=== PATIENT | male | born 1945 | race Caucasian/White ===

== ENCOUNTER 2016-11-22 21:04 | Emergency (ER) | payer MEDICARE, BC ==
[2016-11-22 21:05] VITALS: BMI 22.7
--- NOTE | 2016-11-22 21:22 | C.PDOC ---
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 Patient has a Hx of a prior CVA with residual baseline contractions; he states his was assisting him to the bathroom, he grabbed on to a towel alda and fell. Patient is now complaining of left hip pain, headache, and mild left elbow pain. Patient is due for hemodialysis tomorrow; denies fever, LOC, or other complaints. - HPI Time Seen by Provider: 11/22/16 21:07 Chief Complaint (Nursing): Trauma History Per: Patient History/Exam Limitations: no limitations Onset/Duration Of Symptoms: Mins Injury Occurred (Timing): Just Before Arrival Location Of Injury: Left: Elbow, Hip Recent travel outside of the [place]: No - Fall Fall:Prior To Injury: Slipped Past Medical History Reviewed: Historical Data, Nursing Documentation, Vital Signs Vital Signs: Last Vital Signs Temp 98 F 11/23/16 00:35 Pulse 100 H 11/23/16 00:35 Resp 20 11/23/16 00:35 BP 173/93 H 11/23/16 00:35 Pulse Ox 98 11/23/16 00:35 - Medical History PMH: Back Problems, CAD, CHF, CVA, Diabetes, HTN, End Stage Renal Disease, Chronic Kidney Disease (hemodialysis m-w-f- left av shunt) - [facility] Procedures CORONAR ARTERIOGR-2 CATH (07/04/04) DRAINAGE OF LEFT PLEURAL CAVITY, PERCUTANEOUS APPROACH (12/19/15) HEMODIALYSIS (09/25/13) INTRODUCTION OF SERUM/TOX/VACCINE INTO MUSCLE, PERC APPROACH (12/19/15) LEFT HEART CARDIAC CATH (07/04/04) LT HEART ANGIOCARDIOGRAM (07/04/04) PERFORMANCE OF URINARY FILTRATION, MULTIPLE (12/19/15) Family History: States: Unknown Family Hx - Social History Hx Tobacco Use: No Hx Alcohol Use: No Hx Substance Use: No - Immunization History Hx Tetanus Toxoid Vaccination: No Hx Influenza Vaccination: Yes Hx Pneumococcal Vaccination: No Review Of Systems Constitutional: Negative for: Fever, Chills Gastrointestinal: Negative for: Abdominal Pain Musculoskeletal: Positive for: Arm Pain, Other (Hip pain) Neurological: Positive for: Headache. Negative for: Dizziness, Other (LOC) Physical Exam - Physical Exam Appears: Non-toxic Skin: Normal Color, Warm, Dry Head: Atraumatic, Normacephalic Eye(s): bilateral: Normal Inspection, PERRL, EOMI Oral Mucosa: Moist Neck: Normal, Normal ROM, No Midline Cervical Tenderness, No Paracervical Tenderness, Supple Chest: Symmetrical, No Tenderness Cardiovascular: Rhythm Regular, No Murmur Respiratory: Normal Breath Sounds, No Rales, No Rhonchi, No Wheezing Gastrointestinal/Abdominal: Soft, No Tenderness Back: Normal Inspection, No Vertebral Tenderness, No Paraspinal Tenderness Extremity: Tenderness (Left hip and left elbow), No Deformity Pulses: Left Radial: Normal, Right Radial: Normal Neurological/Psych: Oriented x3, Normal Speech, Normal Cognition, Other ( Baseline contractions) ED Course And Treatment O2 Sat by Pulse Oximetry: 100 (Room air) Pulse Ox Interpretation: Normal Medical Decision Making Medical Decision Making: Plan: * Head CT * Left lower extremity CT * CXR * Left elbow x-ray * Left hip x-ray * Tylenol ct chest shows moderate pleural effusion. pt with known h/o of pleural effusion , multiple drainage before. discussed results in detail with patient. refuses admission for IR drainage. states he has fluid drained multiple times in past. advised pt to set up outpt appointment for drainage. s incidental finding unrelated to acute trauma. discussed results of all ct findings in detail with patient. pt still asking for d/c. daughter bedside understands return precautions. also discussed results of colitis with pt. pt denies any fecal impaction. states 'he goes to the bathroom fine". advised further obs in hospital. pt refuses. signs ama Disposition - Disposition Disposition: AGAINST MEDICAL ADVICE Disposition Time: 12:00 Condition: UNKNOWN Additional Instructions: please follow up with your doctor. return toe r with worsening s ymptoms or concerns. please discuss your ct results with your doctor. Instructions: Fall Prevention for Older Adults (ED), Head Injury (ED), Pleural Effusion (ED), Hip Sprain (ED) Forms: [employer] (formerly [employer]) ([place]) - Clinical Impression Clinical Impression: Fall - Scribe Statement The provider has reviewed the documentation as recorded by the Scribe Lasha Viera All medical record entries made by the Scribe were at my direction and personally dictated by me. I have reviewed the chart and agree that the record accurately reflects my personal performance of the history, physical exam, medical decision making, and the department course for this patient. I have also personally directed, reviewed, and agree with the discharge instructions and disposition.
[2016-11-22 22:54] VITALS: RESP 20
[2016-11-23 00:38] VITALS: BP 173/93; PULSE 100; TEMP 98
--- NOTE | 2016-11-23 08:53 | CT ---
PROCEDURE: CT HEAD WITHOUT CONTRAST. HISTORY: fall COMPARISON: None available. TECHNIQUE: Axial computed tomography images were obtained through the head/brain without intravenous contrast. Radiation dose: Total exam DLP = 1142 mGy-cm. This CT exam was performed using one or more of the following dose reduction techniques: Automated exposure control, adjustment of the mA and/or kV according to patient size, and/or use of iterative reconstruction technique. FINDINGS: HEMORRHAGE: No intracranial hemorrhage. BRAIN: No mass effect or edema. Scattered focal lucencies in the subcortical and periventricular white matter suggestive for chronic microvascular ischemic change. Atrophy. Right MCA territory encephalomalacia most pronounced involving the right basal ganglia with associated ex vacuo dilatation of the right lateral ventricle. VENTRICLES: Unremarkable. No hydrocephalus. CALVARIUM: Unremarkable. PARANASAL SINUSES: Chronic mucosal thickening in the paranasal sinuses. MASTOID AIR CELLS: Unremarkable as visualized. No inflammatory changes. OTHER FINDINGS: None. IMPRESSION: No acute intracranial abnormality. Atrophy. Chronic microvascular ischemic change. Right MCA territory encephalomalacia most pronounced involving the right basal ganglia with associated ex vacuo dilatation of the right lateral ventricle. If there is concern for acute ischemic change, consider further evaluation with MRI. These findings were preliminarily reported at 11:12 p.m. on 11/22/[address] Klaudia Levi from [facility].
--- NOTE | 2016-11-23 09:01 | CT ---
CT left hip History: Fall. Comparison: None available. Technique: Multi-echo multiplanar sequences were performed through left hip without the use of intravenous contrast. Subsequently, sagittal and coronal reformatted images were obtained. Findings: Study limited secondary to suboptimal patient positioning. Degenerative changes of the bilateral hip joints with joint space narrowing and subchondral sclerosis. Diffuse osteopenia. No evidence of acute displaced fracture. Extensive vascular calcifications. Mild to moderate dilatation of a stool-filled rectum with mural thickening and probable pericolonic fat infiltration. Thickening of the urinary bladder wall which is somewhat under distended limiting evaluation. Enlarged prostate gland. Incidentally noted is prominent osteopenia at the level of the right ankle joint space. Correlation with dedicated plain x-ray at this level may be helpful if clinically indicated to better evaluate. Impression: Limited study secondary to suboptimal patient positioning. No evidence of acute displaced fracture. If there is persistent concern for fracture, consider MRI. Findings concerning for possible stercoral colitis as described above. Clinical correlation. Thickening of the urinary bladder wall greater than expected for the degree of underdistention. Clinical correlation. Differential may include detrusor hypertrophy versus cystitis. Correlation with urinalysis recommended. Additional findings as above. These findings were preliminarily reported at 11:48 p.m. on 11/22/[address] Klaudia Levi from [facility].
--- NOTE | 2016-11-23 09:13 | CT ---
CT chest History: Trauma. Comparison: None available. Technique: Multiple contiguous axial images were performed through the chest without intravenous contrast. Subsequently, sagittal and coronal reformatted images were obtained. Findings: Left greater than right bibasilar consolidation suggestive for atelectasis and or infiltrate. Linear opacity in the lingula and inferior left upper lobe also suggestive for atelectasis and or infiltrate. Patchy regions of ground-glass opacity noted in the lung sinclair bilaterally which are nonspecific and may represent alveolar pulmonary edema versus ground-glass infiltrates versus atelectasis versus additional etiology. Small region of coarse interstitial lung markings in the periphery of the right upper lobe suggestive for focal fibrosis and or scarring best seen on series 3, images 37-38. 8 millimeter pulmonary nodule at the right lung base on series 3, image 87. 3 millimeter nodule seen within the posterior aspect of the right upper lobe on series 3, image 59. Moderate left and small right pleural effusions. Left-sided pleural effusion appears loculated. Small amount of fluid also noted within the right major fissure posteriorly. Cardiomegaly. Degenerative changes in the spine. Extensive atherosclerotic disease. Small hypodensity seen within the medial right hepatic lobe inferiorly, too small to adequately characterize. Extensive vascular calcifications. Suggestion of renal atrophy. Correlation with renal ultrasound is recommended. Impression: No traumatic cardiopulmonary findings. Moderate loculated appearing left pleural effusion, small right pleural effusion, and fluid within the right major fissure. Left greater than right bibasilar consolidation nonspecific but suggestive for atelectasis. Linear atelectasis also suggestive for atelectasis in the lingula and inferior left upper lobe. Patchy regions of ground-glass opacity also present in the lung sinclair bilaterally felt most likely to reflect either additional regions of atelectasis versus alveolar pulmonary edema. Superimposed infection is not entirely excluded. Underlying lesion cannot entirely be excluded. Posttreatment follow-up is recommended. Clinical correlation. Cardiomegaly. Prominent calcification noted within the visualized aorta. Mild aneurysmal prominence of the ascending aorta measuring up to 3.7 centimeters. Prominent coronary calcifications and or stenting. 8 millimeter pulmonary nodule at the right lung base on series 3, image 87. 3 millimeter nodule seen within the posterior aspect of the right upper lobe on series 3, image 59. Additional findings as above. These findings were preliminarily reported at 11:34 p.m. on 11/22/[address] Klaudia Levi from [facility].
--- NOTE | 2016-11-23 10:25 | RAD ---
Pelvis and left hip two views History: Fall. Comparison: None available. Findings: Prominent diffuse osteopenia. Suboptimal technique markedly limits evaluation. Moderate degenerative changes of the bilateral hip joints with joint space narrowing and subchondral sclerosis. No evidence of acute displaced fracture or dislocation. Impression: Negative acute. If pain persists, consider MRI.
--- NOTE | 2016-11-23 10:35 | RAD ---
Chest x-ray single frontal view History: Fall. Comparison: None available. Findings: Loculated left pleural effusion with prominent consolidative changes throughout the left lung with associated prominent volume loss. Patchy consolidative changes throughout the right lung. Cardiomegaly. Calcification at the aortic knob. Degenerative changes in the spine and shoulders. Impression: Loculated left pleural effusion with prominent consolidative changes throughout the left lung with associated prominent volume loss. Patchy consolidative changes throughout the right lung. Cardiomegaly. Calcification at the aortic knob.
--- NOTE | 2016-11-23 11:08 | RAD ---
PROCEDURE: Radiographs of the left elbow. HISTORY: fall COMPARISON: No prior. FINDINGS: BONES: These osteopenia suggests osteoporosis. No suspicious lytic or blastic changes identified. Mild degenerate changes seen at the left elbow joint. JOINTS: As above. SOFT TISSUES: There is a soft tissue lesion measure approximate 5.7 cm greatest dimension with peripheral calcifications displacing the dermis and skin laterally and anteriorly. No periosteal reaction or local lytic or blastic changes seen or lateral to relative to the distal left humerus. It is seen at the ventral side of the upper arm soft tissues with a 2nd lesion identified measuring at least 5 cm greatest dimension more proximally but an nearly the same ventral location. Consider subcutaneous disorder such is xanthoma and other etiologies. Further clinical correlation is advised if not already evaluated. Extensive vascular calcifications seen the soft tissues as well. JOINT EFFUSION: None. OTHER FINDINGS: None IMPRESSION: 1. No acute fracture dislocation. Limited degenerate changes seen of left elbow joint. 2. Diffuse osteopenia suggests osteoporosis 3. Partially calcified soft tissue masses at the left upper extremity ventral soft tissues as discussed above. Consider possible xanthomata, though other etiologies are possible. Further clinical correlation is advised. MRI may be of further characterization (without and with contrast).
[2016-11-23 17:46] VITALS: O2SAT 100
== END 2016-11-23 00:38 | disposition left against medical advice (07) ==
LOC: C.ER 21:04
DX: Z04.3 Encounter for examination and observation following other accident (principal); W19.XXXA Unspecified fall, initial encounter; I12.0 Hypertensive chronic kidney disease with stage 5 chronic kidney disease or end stage renal disease; N18.6 End stage renal disease; Z99.2 Dependence on renal dialysis; E11.9 Type 2 diabetes mellitus without complications; I25.10 Atherosclerotic heart disease of native coronary artery without angina pectoris

== ENCOUNTER 2017-03-18 11:57 | Inpatient (IN) | payer MEDICARE, BC ==
[2017-03-18 11:59] VITALS: BMI 22.7
[2017-03-18] MEDS ORDERED: Vancomycin 1 gm/NS 200 ml 1 GM/200 ML BAG IVPB STA (13:10)
[2017-03-18] MEDS ORDERED: Sodium Chloride 0.9% 500 ML IV ONE (13:10)
[2017-03-18] MEDS ORDERED: Piperacill/Tazo 3.375gm in Dex 3.375 GM/50 ML BAG IVPB STA (13:10)
--- NOTE | 2017-03-18 13:14 | C.PDOC ---
History Of Present Illness 72 yo male, esrd on hd mwf, chf, htn, cva, baseline contracted left sided deficit, bedbound presents from home for hypoglycemia, cough congestion since wednesday. last hd yesterday. subjective fever. (+)cough with white sputum. blood sugar 30 prehospital. 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 Seen by Provider: 03/18/17 12:25 Chief Complaint (Nursing): Cough, Cold, Congestion Past Medical History Reviewed: Historical Data, Nursing Documentation, Vital Signs Vital Signs: Last Vital Signs Temp 97.9 F 03/21/17 08:00 Pulse 57 L 03/21/17 11:11 Resp 20 03/21/17 08:00 BP 109/66 03/21/17 11:11 Pulse Ox 97 03/21/17 08:00 - Medical History PMH: Back Problems, CAD, CHF, CVA, Diabetes, HTN, Pneumonia, End Stage Renal Disease, Chronic Kidney Disease (hemodialysis m-w-f- left av shunt) Denies: HIV - [facility] Procedures (12/24/16) CORONAR ARTERIOGR-2 CATH (07/04/04) DRAINAGE OF LEFT PLEURAL CAVITY, PERCUTANEOUS APPROACH (12/24/16) HEMODIALYSIS (09/25/13) INTRODUCTION OF SERUM/TOX/VACCINE INTO MUSCLE, PERC APPROACH (12/24/16) LEFT HEART CARDIAC CATH (07/04/04) LT HEART ANGIOCARDIOGRAM (07/04/04) PERFORMANCE OF URINARY FILTRATION, MULTIPLE (12/19/15) Family History: States: Unknown Family Hx - Social History Hx Tobacco Use: No Hx Alcohol Use: No Hx Substance Use: No - Immunization History Hx Tetanus Toxoid Vaccination: No Hx Influenza Vaccination: Yes Hx Pneumococcal Vaccination: No Review Of Systems Constitutional: Positive for: Fever, Chills Respiratory: Positive for: Cough Physical Exam - Physical Exam Appears: No Acute Distress, Other (elderly male, contracted, awake alert, ) Skin: Normal Color, Warm, Dry Eye(s): bilateral: Normal Inspection, PERRL, EOMI Nose: Normal Throat: Normal Neck: Normal Cardiovascular: Rhythm Regular Respiratory: Other ((+)dimished left base) Gastrointestinal/Abdominal: Normal Exam Back: Normal Inspection Extremity: Normal ROM ED Course And Treatment - Laboratory Results Result Diagrams: 03/21/17 08:50 03/21/17 08:50 Medical Decision Making Medical Decision Making: ro pna, chf, nstemi- labs imaging pending 300: ekg afib 108 - new onset - pt also with nstemi, will start heparin, suspect type II. pt influneza positive will start tamiflu. last hd yesterday. noted la, sirs criteria neg. not code sepsis. b/p 150 systolic, hr 110- stable for tele. dr mc accepts. pt requests full code. Disposition - Disposition Disposition: HOSPITALIZED Disposition Time: 03:00 Condition: GUARDED - Clinical Impression Clinical Impression: Pneumonia, Influenza, Atrial fibrillation, NSTEMI (non-ST elevated myocardial infarction) Decision To Admit - . Bed Request Type: Telemetry Admitting Physician: Sarah Mc Patient Diagnosis: Pneumonia, Influenza, Atrial fibrillation, NSTEMI (non-ST elevated myocardial infarction)
--- NOTE | 2017-03-18 13:36 | RAD ---
PROCEDURE: CHEST RADIOGRAPH, 1 VIEW HISTORY: chest pain COMPARISON: 11/22/2016 FINDINGS: LUNGS: The a extent of left inferior hemithoracic coalescent airspace opacities S slightly less - all patchy improved aeration here inferred. Prior left pleural effusion is renoted similar to perhaps minimally decreased. Central pulmonary venous congestion increased since prior exam. Interval visual fluid present. PLEURA: No pneumothorax. Left than right pleural effusions as above CARDIOVASCULAR: Moderate cardiomegaly -similar OSSEOUS STRUCTURES: No significant abnormalities. VISUALIZED UPPER ABDOMEN: Normal. OTHER FINDINGS: None. IMPRESSION: Cardiomegaly -similar. Interval increased pulmonary venous congestion -CHF inferred. Superimposed coalescent airspace opacities - inferior left tino thorax - minimally decreased-here minimal patchy improved aeration of prior denser coalescing infiltrates / coalescent pulmonary edema- inferred. Left pleural effusion -similar to minimally decreased . Interval right fissural pleural effusion
[2017-03-18 13:38] LABS: BASO # 0.1 K/uL (0.0-0.2); BASO % 1.3 % (0.0-2.0); EOS % 0.4 % (0.0-4.0); HEMOGLOBIN 13.9 g/dL (12.0-18.0); LYMPH # 0.9 K/uL (1.0-4.3); LYMPH % 17.6 % (20.0-40.0); MEAN CELL VOLUME 95.4 fL (80.0-94.0); MEAN CORPUSCULAR HEMOGLOBIN 31.5 pg (27.0-31.0); MEAN PLATELET VOLUME 9.8 fL (7.2-11.7); MONO # 0.5 K/uL (0.0-0.8); MONO % 10.8 % (0.0-10.0); NEUT # 3.4 K/uL (1.8-7.0); NEUT % 69.9 % (50.0-75.0); NRBC % 0.1 % (0.0-2.0); RBC 4.41 Mil/uL (4.40-5.90); RED CELL DISTRIBUTION WIDTH 17.5 % (11.5-14.5); WHITE BLOOD COUNT 4.8 K/uL (4.8-10.8)
[2017-03-18 13:46] LABS: VENOUS BLOOD GAS BASE EXCESS -4.1 mmol/L (0.0-2.0); VENOUS BLOOD GAS PCO2 44 mmHg (40-60); VENOUS BLOOD GAS PO2 30 mm/Hg (30-55); VENOUS BLOOD PH 7.31 (7.32-7.43)
[2017-03-18] MEDS ORDERED: Piperacillin/Tazobact 3.375 gm 100 ML IVPB ONE (13:47)
[2017-03-18 13:54] LABS: ALB/GLOB RATIO 0.9 (1.0-2.1); ALBUMIN 3.6 g/dL (3.5-5.0); CALCIUM 8.4 mg/dl (8.6-10.4)
[2017-03-18 14:20] LABS: INR 1.6; PROTHROMBIN TIME 18.3 SECONDS (9.7-12.2)
[2017-03-18 14:49] LABS: TROPONIN I 0.312 ng/mL (0.00-0.120)
[2017-03-18] MEDS ORDERED: Heparin25000 units/250ml 1/2NS 25,000 UNITS/250 ML BAG IV ONE (14:51)
[2017-03-18] MEDS ORDERED: Heparin25000 units/250ml 1/2NS 25,000 UNITS/250 ML BAG IV PRN (15:22)
--- NOTE | 2017-03-18 15:36 | CP.PCM.PN ---
Subjective - Date & Time of Evaluation Date of Evaluation: 03/18/17 Time of Evaluation: 10:00 - Subjective Subjective: CC: Cough and passed out HPI: Patient is a 72 year old male with a history of ESRD on dialysis three times a week, CVA with left sided paralysis, HTN, and DM. He was seen in the ED with his at bedside. Most of the history is from . Patient has been coughing for the past few days and then passed out today. He also has been having fever and chills as well. He would also having a productive cough as well. He denies having any nausea, vomiting, diarrhea, or constipation. The reason why he came to the hospital today was because he passed out while coughing. He had one episode of emesis while in the ED but did not have any vomiting at home. He has a history of ESRD and went to dialysis yesterday, his schedule is Wednesday, Wednesday, Wednesday. PMH: see above PSH: denies Family history: denies Social History: Bed bound, denies smoking, etoh use, or illicit drug use, lives with . Objective - Vital Signs/Intake and Output Vital Signs (last 24 hours): Temp Pulse Resp BP Pulse Ox 97.9 F 102 H 20 143/76 03/18/17 12:48 03/18/17 13:30 03/18/17 13:30 03/18/17 13:30 - Medications Medications: Current Medications Carvedilol (Coreg) 12.5 mg PO Q12H [facility] Enalapril Maleate (Vasotec) 20 mg PO DAILY [facility] Hydralazine HCl (Apresoline) 75 mg PO DAILY [facility] Heparin Sodium/Sodium Chloride (Heparin 00414 Units/250ml 1/2 Normal Saline) 25 ,000 units in 250 mls @ 7.62 mls/hr IV .Q24H PRN; Protocol; 12 UNITS/KG/HR PRN Reason: ADJUST RATE PER PROTOCOL Piperacillin Sod/Tazobactam Sod (Zosyn 3.375 Gm Iv Premix) 3.375 gm in 50 mls @ 100 mls/hr IVPB Q6H [facility] Ondansetron HCl (Zofran Inj) 4 mg IVP Q6 PRN PRN Reason: Nausea/Vomiting Oseltamivir Phosphate (Tamiflu Cap) 75 mg PO BID [facility] Stop: 03/23/17 15:29 Pantoprazole Sodium (Protonix Ec Tab) 40 mg PO DAILY [facility] Vitamin B Complex/Vit C/Folic Acid (Nephro-Seth) 1 tab PO DAILY [facility] - Labs Labs: 03/18/17 13:32 03/18/17 13:32 PT 18.3 SECONDS (9.7-12.2) H 03/18/17 14:02 INR 1.6 03/18/17 14:02 APTT 39 SECONDS (21-34) H 03/18/17 14:02 - Constitutional Appears: Toxic, Cachectic, Chronically Ill - Head Exam Head Exam: NORMAL INSPECTION - Eye Exam Eye Exam: Scleral icterus - Respiratory Exam Respiratory Exam: Decreased Breath Sounds. absent: Rales, Rhonchi, Wheezes - Cardiovascular Exam Cardiovascular Exam: REGULAR RHYTHM, RRR, +S1, +S2. absent: Gallop, Rubs - GI/Abdominal Exam GI & Abdominal Exam: Soft, Normal Bowel Sounds. absent: Tenderness - Extremities Exam Extremities Exam: Normal Inspection. absent: Pedal Edema - Back Exam Back Exam: NORMAL INSPECTION - Psychiatric Exam Psychiatric exam: Normal Affect, Normal Mood - Skin Skin Exam: Dry, Intact. absent: Normal Color Assessment and Plan (1) Pneumonia Assessment & Plan: Patient was admitted to inpatient. Will get a sputum culture, Zosyn with renal adjusted dose. follow up blood and sputum culture Dr. Kemp consulted. Status: Acute (2) Influenza Assessment & Plan: Dr. Kemp consulted, renal adjusted Tamiflu, patient in isolation. Status: Acute (3) Syncope Assessment & Plan: Patient on fall precautions, orthostatic vital signs Cardiology consulted. Status: Acute (4) Atrial fibrillation Assessment & Plan: Admitted patient to tele. Heparin drip with cardiac protocol. desean panels q6h x2 Status: Acute (5) NSTEMI (non-ST elevated myocardial infarction) Assessment & Plan: Dr. Thomas consulted, Follow up Q6H x2 Trop elevated at .3 Status: Acute (6) Hyperbilirubinemia Assessment & Plan: T. bili is 2.8, he is jaundiced. consider abdominal ultrasound or CT scan. Follow up CMP tomorrow. Status: Acute (7) IDDM (insulin dependent diabetes mellitus) Assessment & Plan: accu checks, sliding scale, hypoglycemia protocol. Status: Chronic (8) HTN (hypertension) Assessment & Plan: Continue home Coreg, Vasotec Status: Chronic (9) CVA, old, hemiparesis Assessment & Plan: Patient is bed bound, rotate position q2h Status: Chronic (10) Chronic kidney disease, stage V requiring chronic dialysis Assessment & Plan: Consult Dr. Conway, continue his dialysis schedule. Status: Acute (11) Prophylactic measure Assessment & Plan: Heparin drip for the afib protonix 20mg SCDs Status: Acute
[2017-03-18] MEDS: Piperacill/Tazo 2.25gm in Dex 2.25 GM/50 ML BAG IVPB SCH ×2 (15:38→22:11)
[2017-03-18] MEDS ORDERED: Pantoprazole 40 mg EC Tab PO ONE (15:45)
[2017-03-18] MEDS ORDERED: Glucagon Recombinant 1 mg Inj IM PRN (15:51)
[2017-03-18] MEDS: Pantoprazole 40 mg EC Tab PO SCH (16:01)
[2017-03-18] MEDS ORDERED: Dextrose 50% VIAL Inj (50 ml) IV ONE (16:33)
[2017-03-18] MEDS: Dextrose 50% SYRINGE Inj (50 ml) IV PRN (16:43)
[2017-03-18] MEDS: (Novolin R) Insulin Human Regular 100 units/ml vial SC SCH ×2 (16:55→22:14)
[2017-03-18] MEDS ORDERED: Oseltamivir 6 MG/ML PO SCH (18:00)
[2017-03-18 20:20] LABS: CK-MB 2.27 ng/mL (0.0-3.38)
[2017-03-18 20:45] LABS: TROPONIN I 0.416 ng/mL (0.00-0.120)
--- NOTE | 2017-03-18 23:16 | CP.PCM.CON ---
History of Present Illness - History of Present Illness History of Present Illness: Patient is a 72 year old male with a history of ESRD on dialysis three times a week, CVA with left sided paralysis about 12 yrs, CHF systolic dysfunction, ischemic cardiomyopathy s/p stents about 12 yrs back, recently declined AICD, due to chronic mobidity in December 2016, HTN, and DM. Patient brought to the hospital due to c/o coughing and passing out, provided by during earlier interview. Patient has been coughing for about a wk, cxr show b/l pl effusion, left > right, which has been similar in the past, influenza b positive. ICU eval called for indeterminant troponin. Patient denies chest pain, worsening sob , orthpenea. He is very sedentary, and was in no distress, alert oriented. PMH as above PSH left arm av fistula Social lives with , wheel chair bound, ex smoking 25 yrs back, denies alcohol Family history not contributory Allergies NKDA His rhythm on EKG in the past has been sinus of variant of sinus, but today was irregularly irregular without clear noticeable p waves suspicious of Afib, although QSR was RBBB unchanged from prior ekg Review of Systems - Review of Systems All systems: reviewed and no additional remarkable complaints except (HPI) Past Patient History - Infectious Disease Hx of Infectious Diseases: None - Past Medical History & Family History Past Medical History?: Yes - Past Social History Smoking Status: Former Smoker Alcohol: None Home Situation {Lives}: With Family Domestic Violence: Negative - CARDIAC Hx Congestive Heart Failure: Yes Hx Hypertension: Yes - PULMONARY Hx Pneumonia: Yes - NEUROLOGICAL HX Cerebrovascular Accident: Yes (left sided hemiparesis 2 yrs ago) - HEENT Hx HEENT Problems: Yes - RENAL Hx Chronic Kidney Disease: Yes (hemodialysis m-w-f- left av shunt) - ENDOCRINE/METABOLIC Hx Endocrine Disorders: Yes Hx Diabetes Mellitus Type 1: Yes Hx Diabetes Mellitus Type 2: Yes - HEMATOLOGICAL/ONCOLOGICAL Hx Human Immunodeficiency Virus (HIV): No - INTEGUMENTARY Hx Dermatological Problems: No - MUSCULOSKELETAL/RHEUMATOLOGICAL Hx Musculoskeletal Disorders: Yes - GASTROINTESTINAL Hx Gastrointestinal Disorders: No - GENITOURINARY/GYNECOLOGICAL Hx Genitourinary Disorders: No Other/Comment: ANURIC - PSYCHIATRIC Hx Substance Use: No - SURGICAL HISTORY Hx Surgeries: Yes Hx Amputation: Yes (right big toe) Other/Comment: Left AV shunt - ANESTHESIA Hx Anesthesia: Yes Hx Anesthesia Reactions: No Hx Malignant Hyperthermia: No Meds Allergies/Adverse Reactions: Allergies Allergy/AdvReac Type Severity Reaction Status Date / Time No Known Allergies Allergy Verified 01/02/17 14:29 - Medications Medications: Current Medications Carvedilol (Coreg) 12.5 mg PO Q12 [facility] Last Admin: 03/18/17 16:00 Dose: 12.5 mg Dextrose (Dextrose 50% Inj) 0 ml IV STAT PRN; Protocol PRN Reason: Hypoglycemia Protocol Last Admin: 03/18/17 16:43 Dose: 25 ml Dextrose (Glutose 15) 0 gm PO ONCE PRN; Protocol PRN Reason: Hypoglycemia Protocol Enalapril Maleate (Vasotec) 20 mg PO DAILY [facility] Last Admin: 03/18/17 16:01 Dose: 20 mg Glucagon (Glucagen Diagnostic Kit) 0 mg IM STAT PRN; Protocol PRN Reason: Hypoglycemia Protocol Hydralazine HCl (Apresoline) 75 mg PO DAILY [facility] Last Admin: 03/18/17 16:01 Dose: 75 mg Heparin Sodium/Sodium Chloride (Heparin 53458 Units/250ml 1/2 Normal Saline) 25 ,000 units in 250 mls @ 7.62 mls/hr IV .Q24H PRN; Protocol; 12 UNITS/KG/HR PRN Reason: ADJUST RATE PER PROTOCOL Piperacillin Sod/Tazobactam Sod (Zosyn 2.25 Gm Iv Premix) 2.25 gm in 50 mls @ 100 mls/hr IVPB Q6H [facility] Last Admin: 03/18/17 22:11 Dose: 100 mls/hr Dextrose (Dextrose 5% In Water 1000 Ml) 1,000 mls @ 0 mls/hr IV .Q0M PRN; Protocol; Per Protocol PRN Reason: Hypoglycemia Protocol Last Admin: 03/18/17 16:41 Dose: 100 mls/hr Insulin Human Regular (Novolin R) 0 unit SC ACHS [facility] PRN Reason: Protocol Last Admin: 03/18/17 22:14 Dose: Not Given Ondansetron HCl (Zofran Inj) 4 mg IVP Q6 PRN PRN Reason: Nausea/Vomiting Last Admin: 03/18/17 16:00 Dose: 4 mg Oseltamivir Phosphate (Tamiflu Susp) 30 mg PO DAILY@1800 [facility] Stop: 03/24/17 18:01 Pantoprazole Sodium (Protonix Ec Tab) 40 mg PO DAILY [facility] Last Admin: 03/18/17 16:01 Dose: 40 mg Vitamin B Complex/Vit C/Folic Acid (Nephro-Seth) 1 tab PO DAILY [facility] Physical Exam - Additional Findings Additional findings: * HEENT SYLVIE * Neck Supple * Chest reduced in basis, b/l, * CVS irregular rhythm rate of 70/min * PA soft, nt, bs present * Ext no edema contracture in left leg, left arm, av fistula in left arm * [employer]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 Results - Vital Signs Recent Vital Signs: Last Vital Signs Temp 97.9 F 03/18/17 22:41 Pulse 89 03/18/17 22:41 Resp 16 03/18/17 22:41 BP 127/70 03/18/17 22:41 Pulse Ox 97 03/18/17 22:41 - Labs Result Diagrams: 03/18/17 13:32 03/18/17 13:32 Labs: Laboratory Results - last 24 hr 03/18/17 03/18/17 03/18/17 13:05 13:32 13:32 WBC 4.8 RBC 4.41 Hgb 13.9 Hct 42.1 MCV 95.4 H MCH 31.5 H MCHC 33.0 RDW 17.5 H Plt Count 77 L MPV 9.8 Neut % (Auto) 69.9 Lymph % (Auto) 17.6 L [place] % (Auto) 10.8 H Eos % (Auto) 0.4 Baso % (Auto) 1.3 Neut # 3.4 Lymph # 0.9 L [place] # 0.5 Eos # 0.0 Baso # 0.1 PT INR APTT pO2 VBG pH VBG pCO2 VBG HCO3 VBG Total CO2 VBG O2 Sat (Calc) VBG Base Excess VBG Potassium Glucose Lactate Sodium 132 Potassium 4.2 Chloride 96 L Carbon Dioxide 23 Anion Gap 17 BUN 20 Creatinine 2.8 H Est GFR ( Amer) 27 Est GFR (Non-Af Amer) 22 POC Glucose (mg/dL) Random Glucose 90 Calcium 8.4 L Total Bilirubin 2.8 H AST 63 H D ALT 24 Alkaline Phosphatase 365 H D Total Creatine Kinase CK-MB (Mass) Troponin I 0.3120 H* Total Protein 7.4 Albumin 3.6 Globulin 3.8 Albumin/Globulin Ratio 0.9 L Venous Blood Potassium Influenza Typ A,B (EIA) Pos for influenza b H 03/18/17 03/18/17 03/18/17 13:37 14:02 14:51 WBC RBC Hgb Hct MCV MCH MCHC RDW Plt Count MPV Neut % (Auto) Lymph % (Auto) [place] % (Auto) Eos % (Auto) Baso % (Auto) Neut # Lymph # [place] # Eos # Baso # PT 18.3 H INR 1.6 APTT 39 H pO2 30 VBG pH 7.31 L VBG pCO2 44 VBG HCO3 20.4 VBG Total CO2 23.6 VBG O2 Sat (Calc) 54.1 VBG Base Excess -4.1 L VBG Potassium 3.1 L Glucose 77 Lactate 3.2 H Sodium 141.0 Potassium Chloride 106.0 Carbon Dioxide Anion Gap BUN Creatinine Est GFR ( Amer) Est GFR (Non-Af Amer) POC Glucose (mg/dL) 72 Random Glucose Calcium Total Bilirubin AST ALT Alkaline Phosphatase Total Creatine Kinase CK-MB (Mass) Troponin I Total Protein Albumin Globulin Albumin/Globulin Ratio Venous Blood Potassium 3.1 L Influenza Typ A,B (EIA) 03/18/17 03/18/17 03/18/17 16:27 16:33 18:36 WBC RBC Hgb Hct MCV MCH MCHC RDW Plt Count MPV Neut % (Auto) Lymph % (Auto) [place] % (Auto) Eos % (Auto) Baso % (Auto) Neut # Lymph # [place] # Eos # Baso # PT INR APTT pO2 VBG pH VBG pCO2 VBG HCO3 VBG Total CO2 VBG O2 Sat (Calc) VBG Base Excess VBG Potassium Glucose Lactate Sodium Potassium Chloride Carbon Dioxide Anion Gap BUN Creatinine Est GFR ( Amer) Est GFR (Non-Af Amer) POC Glucose (mg/dL) 67 58 L 111 H Random Glucose Calcium Total Bilirubin AST ALT Alkaline Phosphatase Total Creatine Kinase CK-MB (Mass) Troponin I Total Protein Albumin Globulin Albumin/Globulin Ratio Venous Blood Potassium Influenza Typ A,B (EIA) 03/18/17 03/18/17 03/18/17 19:54 20:28 22:09 WBC RBC Hgb Hct MCV MCH MCHC RDW Plt Count MPV Neut % (Auto) Lymph % (Auto) [place] % (Auto) Eos % (Auto) Baso % (Auto) Neut # Lymph # [place] # Eos # Baso # PT INR APTT pO2 VBG pH VBG pCO2 VBG HCO3 VBG Total CO2 VBG O2 Sat (Calc) VBG Base Excess VBG Potassium Glucose Lactate Sodium Potassium Chloride Carbon Dioxide Anion Gap BUN Creatinine Est GFR ( Amer) Est GFR (Non-Af Amer) POC Glucose (mg/dL) 104 122 H Random Glucose Calcium Total Bilirubin AST ALT Alkaline Phosphatase Total Creatine Kinase 99 CK-MB (Mass) 2.27 Troponin I 0.4160 H* Total Protein Albumin Globulin Albumin/Globulin Ratio Venous Blood Potassium Influenza Typ A,B (EIA) Assessment & Plan - Assessment and Plan (Free Text) Assessment: * Admitted for cough syncopy, with stress of influenza, ESRD on HD, slight positive trop is likely related to stress of the disease rather unstable plaque , patient is asymptomatic form acute ischemia prospective * Afib with controlled rate, new diagnosis * Ischemic cardiomyopathy declined AICD, with idea of preventing prolonging morbidity, primary team may discuss also DNR with that prospect. * H/o DM * ESRD on hd. * Patient started on tamiflu, and empiric zosyn, heparin drip Plan: * Patient can be monitored in tele * Continue trending Trop, ckmb, cardiology has been consulted. * anticoagulation may be considered for afib as well, but unlikely this event is due to unstable plaque, will add low dose asa.
[2017-03-19 01:55] LABS: CK-MB 3.25 ng/mL (0.0-3.38); TROPONIN I 1.17 ng/mL (0.00-0.120)
[2017-03-19 02:05] LABS: INR 1.8; PROTHROMBIN TIME 20.9 SECONDS (9.7-12.2)
[2017-03-19] MEDS ORDERED: Heparin25000 units/250ml 1/2NS 25,000 UNITS/250 ML BAG IV PRN (02:30)
[2017-03-19] MEDS: Piperacill/Tazo 2.25gm in Dex 2.25 GM/50 ML BAG IVPB SCH ×4 (03:14→22:05)
[2017-03-19 07:45] LABS: BASO # 0.1 K/uL (0.0-0.2); BASO % 1.1 % (0.0-2.0); EOS % 0.1 % (0.0-4.0); LYMPH # 1.3 K/uL (1.0-4.3); LYMPH % 21.2 % (20.0-40.0); MEAN CELL VOLUME 94.2 fL (80.0-94.0); MEAN CORPUSCULAR HEMOGLOBIN 31.6 pg (27.0-31.0); MEAN CORPUSCULAR HGB CONC 33.5 g/dL (33.0-37.0); MEAN PLATELET VOLUME 8.7 fL (7.2-11.7); MONO # 0.6 K/uL (0.0-0.8); MONO % 9.8 % (0.0-10.0); NEUT % 67.8 % (50.0-75.0); NRBC % 0.1 % (0.0-2.0); RBC 3.8 Mil/uL (4.40-5.90); RED CELL DISTRIBUTION WIDTH 17.1 % (11.5-14.5); WHITE BLOOD COUNT 5.9 K/uL (4.8-10.8)
[2017-03-19] MEDS: (Novolin R) Insulin Human Regular 100 units/ml vial SC SCH ×4 (08:01→22:07)
[2017-03-19 08:28] LABS: MAGNESIUM 1.7 mg/dL (1.6-2.3)
[2017-03-19 08:38] LABS: CK-MB 6.93 ng/mL (0.0-3.38)
[2017-03-19] MEDS: Pantoprazole 40 mg EC Tab PO SCH (09:36)
[2017-03-19] MEDS: Multivitamin Vitamin B Complex (Nephro-Vite) Tab PO SCH (09:36)
--- NOTE | 2017-03-19 10:16 | CP.PCM.PN ---
Subjective - Date & Time of Evaluation Date of Evaluation: 03/19/17 Time of Evaluation: 09:00 - Subjective Subjective: Dr. Weston note: Patient seen and examined in room. He says he feels a little better but is still coughing with small amount of green sputum. He denies any vomiting or nausea. Objective - Vital Signs/Intake and Output Vital Signs (last 24 hours): Temp Pulse Resp BP Pulse Ox 98.6 F 79 20 142/82 96 03/19/17 04:00 03/19/17 09:35 03/19/17 04:00 03/19/17 09:37 03/19/17 04:00 - Medications Medications: Current Medications Aspirin (Aspirin Chewable) 81 mg PO DAILY [facility] Last Admin: 03/19/17 09:36 Dose: 81 mg Carvedilol (Coreg) 12.5 mg PO Q12 [facility] Last Admin: 03/19/17 09:37 Dose: 12.5 mg Dextrose (Dextrose 50% Inj) 0 ml IV STAT PRN; Protocol PRN Reason: Hypoglycemia Protocol Last Admin: 03/18/17 16:43 Dose: 25 ml Dextrose (Glutose 15) 0 gm PO ONCE PRN; Protocol PRN Reason: Hypoglycemia Protocol Enalapril Maleate (Vasotec) 20 mg PO DAILY [facility] Last Admin: 03/19/17 09:36 Dose: 20 mg Glucagon (Glucagen Diagnostic Kit) 0 mg IM STAT PRN; Protocol PRN Reason: Hypoglycemia Protocol Hydralazine HCl (Apresoline) 75 mg PO DAILY [facility] Last Admin: 03/19/17 09:36 Dose: 75 mg Piperacillin Sod/Tazobactam Sod (Zosyn 2.25 Gm Iv Premix) 2.25 gm in 50 mls @ 100 mls/hr IVPB Q6H [facility] Last Admin: 03/19/17 09:37 Dose: 100 mls/hr Dextrose (Dextrose 5% In Water 1000 Ml) 1,000 mls @ 0 mls/hr IV .Q0M PRN; Protocol; Per Protocol PRN Reason: Hypoglycemia Protocol Last Admin: 03/18/17 16:41 Dose: 100 mls/hr Heparin Sodium/Sodium Chloride (Heparin 37828 Units/250ml 1/2 Normal Saline) 25 ,000 units in 250 mls @ 5.715 mls/hr IV .Q24H PRN; Protocol; 9 UNITS/KG/HR PRN Reason: ADJUST RATE PER PROTOCOL Last Admin: 03/19/17 03:12 Dose: 9 units/kg/hr, 5.715 mls/hr Insulin Human Regular (Novolin R) 0 unit SC ACHS [facility] PRN Reason: Protocol Last Admin: 03/19/17 08:01 Dose: Not Given Ondansetron HCl (Zofran Inj) 4 mg IVP Q6 PRN PRN Reason: Nausea/Vomiting Last Admin: 03/18/17 16:00 Dose: 4 mg Oseltamivir Phosphate (Tamiflu Susp) 30 mg PO DAILY@1800 [facility] Stop: 03/24/17 18:01 Pantoprazole Sodium (Protonix Ec Tab) 40 mg PO DAILY [facility] Last Admin: 03/19/17 09:36 Dose: 40 mg Vitamin B Complex/Vit C/Folic Acid (Nephro-Seth) 1 tab PO DAILY [facility] Last Admin: 03/19/17 09:36 Dose: 1 tab - Labs Labs: 03/19/17 07:25 PT 20.9 SECONDS (9.7-12.2) H 03/19/17 01:23 INR 1.8 03/19/17 01:23 APTT 173 SECONDS (21-34) H* D 03/19/17 01:23 - Constitutional Appears: Cachectic, Chronically Ill - Eye Exam Eye Exam: Normal appearance, PERRL, Scleral icterus Pupil Exam: NORMAL ACCOMODATION - Respiratory Exam Respiratory Exam: Clear to Ausculation Bilateral. absent: Rales, Rhonchi, Wheezes - Cardiovascular Exam Cardiovascular Exam: REGULAR RHYTHM, RRR, +S1, +S2. absent: Gallop, Rubs - GI/Abdominal Exam GI & Abdominal Exam: Soft, Normal Bowel Sounds. absent: Tenderness - Neurological Exam Neurological Exam: Alert, Awake. absent: Oriented x3 - Skin Skin Exam: Dry, Pallor Assessment and Plan (1) Pneumonia Assessment & Plan: Need to follow up blood cultures, day 2 of IV Zosyn, follow up recs from ID consult Dr. Kemp. Status: Acute (2) Influenza Assessment & Plan: Day 2 of Tamiflu, droplet isolation. Status: Acute (3) Atrial fibrillation Assessment & Plan: Heparin drop, his rate has been controlled with a HR around the 70s. Status: Acute (4) NSTEMI (non-ST elevated myocardial infarction) Assessment & Plan: Trop is up to over 4, will follow up recs, Aspirin 81mg and Heparin drip. Status: Acute (5) Elevated LFTs Assessment & Plan: Follow up Abdominal US and also GI consult. Status: Acute (6) Hyperbilirubinemia Assessment & Plan: T. Bili is 1.8, follow up direct T. Bili. Status: Acute (7) IDDM (insulin dependent diabetes mellitus) Assessment & Plan: Patient has been having hypoglyemic episodes per patient's family, will do accu checks with sliding scale. Status: Chronic (8) HTN (hypertension) Assessment & Plan: continue current medication. Status: Chronic (9) CVA, old, hemiparesis Assessment & Plan: continue reposition of patient, will need to check for pressure ulcers. PT and OT. Status: Chronic (10) Chronic kidney disease, stage V requiring chronic dialysis Assessment & Plan: Dialysis. Status: Acute (11) Prophylactic measure Assessment & Plan: Heparin drip, protonix, SCDs pallative care consult, patient has agreed to DNR/DNI. Status: Acute - Assessment and Plan (Free Text) Assessment: Disposition: Patient is a 72 year old male with a history of systolic CHF with a ejection fraction of 10-15%, HTN, CVA with left sided paralysis, ESRD on Dialysis, and DM is admitted with pneumonia, influenza, Afib, elevated troponin, elevated T. Bili, elevated LFTs. He is being treat with tamiflu, IV Zosyn, on droplet precaution, Heparin drip for afib and elevated troponin. Discussed palliative care with patient, have put in palliative care consult, DNR/DNI is agreed upon. CT scan of the abdomen is unremarkable see EMR for full scan, consulted GI for elevated LFTs and ordered abdominal ultrasound.
--- NOTE | 2017-03-19 13:19 | CT ---
PROCEDURE: CT Abdomen and Pelvis without intravenous contrast HISTORY: jaundice, high biliruben, cachetic. COMPARISON: None. TECHNIQUE: Without contrast.. Contrast Dose: 0 Radiation dose: Total exam DLP = 910.11 mGy-cm. This CT exam was performed using one or more of the following dose reduction techniques: Automated exposure control, adjustment of the mA and/or kV according to patient size, and/or use of iterative reconstruction technique. FINDINGS: LOWER THORAX: Bilateral small pleural effusion and lower lobe compressive atelectasis. Cardiomegaly. Coronary arterial calcification. LIVER: Normal size. Questionable micro nodular contour consistent with hepatic cirrhosis. Please correlate with liver function testing. No mass. No intrahepatic biliary ductal dilatation. GALLBLADDER AND BILE DUCTS: Unremarkable. PANCREAS: Unremarkable. No gross lesion or ductal dilatation. SPLEEN: Unremarkable. ADRENALS: Unremarkable. No mass. KIDNEYS AND URETERS: Atrophic kidneys. Extensive vascular calcification bilaterally. No mass or hydronephrosis. VASCULATURE: Unremarkable. No aortic aneurysm. BOWEL: Sigmoid diverticulosis. No evidence of diverticulitis. No bowel obstruction. No other abnormal bowel loops. APPENDIX: Unremarkable. Normal appendix. PERITONEUM: Ascites. LYMPH NODES: Unremarkable. No enlarged lymph nodes. BLADDER: Markedly thickened bladder wall suspicious for cystitis. Evaluation is limited due to lack of adequate distention. Nevertheless, recommend correlation with clinical and laboratory evaluation for cystitis. REPRODUCTIVE: Unremarkable prostate. BONES: No acute fracture. OTHER FINDINGS: None. IMPRESSION: Ascites. Questionable hepatic cirrhosis. Markedly thickened bladder wall. Please correlate for possible cystitis. Bilateral pleural effusion with lower lobe compressive atelectasis.
--- NOTE | 2017-03-19 13:31 | CP.PCM.CON ---
History of Present Illness - History of Present Illness History of Present Illness: Patient is a 72 years of age normal) renal disease on maintenance hemodialysis Wednesday. He was admitted because of weakness, fainting generalized tiredness and congestion. Patient has significant past medical history as related PMH: Back Problems, CAD, CHF, CVA, Diabetes, HTN, Pneumonia, End Stage Renal Disease, Chronic Kidney Disease (hemodialysis m-w-f- left av shunt) Denies: HIV Social history not contributory Review of system as noted below Review of Systems - Review of Systems Systems not reviewed;Unavailable: Dementia - Constitutional Constitutional: Anorexia, Malaise, Weight Loss. absent: Chills - Cardiovascular Cardiovascular: As Per HPI, Dyspnea, Orthopnea. absent: Chest Pain, Leg Edema - Respiratory Respiratory: Cough, Chest Congestion - Gastrointestinal Gastrointestinal: absent: Bloating, Coffee Ground Emesis, Constipation, Cramping , Diarrhea - Genitourinary Genitourinary: Nocturia - Musculoskeletal Musculoskeletal: As Per HPI, Deformity, Muscle Weakness - Neurological Neurological: Abnormal Gait - Endocrine Endocrine: As Per HPI - Hematologic/Lymphatic Hematologic: absent: Easy Bleeding Past Patient History - Infectious Disease Hx of Infectious Diseases: None - Past Medical History & Family History Past Medical History?: Yes - Past Social History Smoking Status: Never Smoked - CARDIAC Hx Congestive Heart Failure: Yes Hx Hypertension: Yes - PULMONARY Hx Pneumonia: Yes - NEUROLOGICAL HX Cerebrovascular Accident: Yes (left sided hemiparesis 2 yrs ago) - HEENT Hx HEENT Problems: Yes - RENAL Hx Chronic Kidney Disease: Yes (hemodialysis -w-f- left av shunt) - ENDOCRINE/METABOLIC Hx Endocrine Disorders: Yes Hx Diabetes Mellitus Type 1: Yes Hx Diabetes Mellitus Type 2: Yes - HEMATOLOGICAL/ONCOLOGICAL Hx Human Immunodeficiency Virus (HIV): No - INTEGUMENTARY Hx Dermatological Problems: No - MUSCULOSKELETAL/RHEUMATOLOGICAL Hx Falls: Yes - GASTROINTESTINAL Hx Gastrointestinal Disorders: No - GENITOURINARY/GYNECOLOGICAL Hx Genitourinary Disorders: No Other/Comment: ANURIC - PSYCHIATRIC Hx Substance Use: No - SURGICAL HISTORY Hx Surgeries: Yes Hx Amputation: Yes (right big toe) Other/Comment: Left AV shunt - ANESTHESIA Hx Anesthesia: Yes Hx Anesthesia Reactions: No Hx Malignant Hyperthermia: No Meds Allergies/Adverse Reactions: Allergies Allergy/AdvReac Type Severity Reaction Status Date / Time No Known Allergies Allergy Verified 01/02/17 14:29 - Medications Medications: Current Medications Aspirin (Aspirin Chewable) 81 mg PO DAILY [facility] Last Admin: 03/19/17 09:36 Dose: 81 mg Carvedilol (Coreg) 12.5 mg PO Q12 [facility] Last Admin: 03/19/17 09:37 Dose: 12.5 mg Dextrose (Dextrose 50% Inj) 0 ml IV STAT PRN; Protocol PRN Reason: Hypoglycemia Protocol Last Admin: 03/18/17 16:43 Dose: 25 ml Dextrose (Glutose 15) 0 gm PO ONCE PRN; Protocol PRN Reason: Hypoglycemia Protocol Enalapril Maleate (Vasotec) 20 mg PO DAILY [facility] Last Admin: 03/19/17 09:36 Dose: 20 mg Glucagon (Glucagen Diagnostic Kit) 0 mg IM STAT PRN; Protocol PRN Reason: Hypoglycemia Protocol Hydralazine HCl (Apresoline) 75 mg PO DAILY [facility] Last Admin: 03/19/17 09:36 Dose: 75 mg Piperacillin Sod/Tazobactam Sod (Zosyn 2.25 Gm Iv Premix) 2.25 gm in 50 mls @ 100 mls/hr IVPB Q6H [facility] Last Admin: 03/19/17 09:37 Dose: 100 mls/hr Dextrose (Dextrose 5% In Water 1000 Ml) 1,000 mls @ 0 mls/hr IV .Q0M PRN; Protocol; Per Protocol PRN Reason: Hypoglycemia Protocol Last Admin: 03/18/17 16:41 Dose: 100 mls/hr Heparin Sodium/Sodium Chloride (Heparin 91077 Units/250ml 1/2 Normal Saline) 25 ,000 units in 250 mls @ 5.715 mls/hr IV .Q24H PRN; Protocol; 9 UNITS/KG/HR PRN Reason: ADJUST RATE PER PROTOCOL Last Admin: 03/19/17 03:12 Dose: 9 units/kg/hr, 5.715 mls/hr Insulin Human Regular (Novolin R) 0 unit SC ACHS [facility] PRN Reason: Protocol Last Admin: 03/19/17 12:20 Dose: Not Given Ondansetron HCl (Zofran Inj) 4 mg IVP Q6 PRN PRN Reason: Nausea/Vomiting Last Admin: 03/18/17 16:00 Dose: 4 mg Oseltamivir Phosphate (Tamiflu Susp) 30 mg PO DAILY@1800 [facility] Stop: 03/24/17 18:01 Pantoprazole Sodium (Protonix Ec Tab) 40 mg PO DAILY [facility] Last Admin: 03/19/17 09:36 Dose: 40 mg Vitamin B Complex/Vit C/Folic Acid (Nephro-Seth) 1 tab PO DAILY [facility] Last Admin: 03/19/17 09:36 Dose: 1 tab Physical Exam - Constitutional Appears: No Acute Distress - ENT Exam ENT Exam: Mucous Membranes Dry - Neck Exam Neck exam: Negative for: Lymphadenopathy - Respiratory Exam Respiratory Exam: Rhonchi. absent: Chest Wall Tenderness - Cardiovascular Exam Cardiovascular Exam: absent: JVD, Rubs - GI/Abdominal Exam GI & Abdominal Exam: Normal Bowel Sounds. absent: Guarding - Extremities Exam Extremities exam: Negative for: calf tenderness - Back Exam Back exam: absent: CVA tenderness (L), CVA tenderness (R) - Neurological Exam Neurological exam: Altered - Psychiatric Exam Psychiatric exam: Flat Affect Results - Vital Signs Recent Vital Signs: Last Vital Signs Temp 98.6 F 03/19/17 04:00 Pulse 79 03/19/17 09:35 Resp 20 03/19/17 04:00 BP 142/82 03/19/17 09:37 Pulse Ox 96 03/19/17 04:00 - Labs Result Diagrams: 03/19/17 07:25 03/18/17 13:32 Labs: Laboratory Results - last 24 hr 03/18/17 03/18/17 03/18/17 13:05 13:32 13:32 WBC 4.8 RBC 4.41 Hgb 13.9 Hct 42.1 MCV 95.4 H MCH 31.5 H MCHC 33.0 RDW 17.5 H Plt Count 77 L MPV 9.8 Neut % (Auto) 69.9 Lymph % (Auto) 17.6 L [place] % (Auto) 10.8 H Eos % (Auto) 0.4 Baso % (Auto) 1.3 Neut # 3.4 Lymph # 0.9 L [place] # 0.5 Eos # 0.0 Baso # 0.1 PT INR APTT pO2 VBG pH VBG pCO2 VBG HCO3 VBG Total CO2 VBG O2 Sat (Calc) VBG Base Excess VBG Potassium Glucose Lactate Sodium 132 Potassium 4.2 Chloride 96 L Carbon Dioxide 23 Anion Gap 17 BUN 20 Creatinine 2.8 H Est GFR ( Amer) 27 Est GFR (Non-Af Amer) 22 POC Glucose (mg/dL) Random Glucose 90 Hemoglobin A1c Calcium 8.4 L Phosphorus Magnesium Total Bilirubin 2.8 H AST 63 H D ALT 24 Alkaline Phosphatase 365 H D Total Creatine Kinase CK-MB (Mass) Troponin I 0.3120 H* Total Protein 7.4 Albumin 3.6 Globulin 3.8 Albumin/Globulin Ratio 0.9 L Triglycerides Cholesterol LDL Cholesterol Direct HDL Cholesterol TSH 3rd Generation Venous Blood Potassium Influenza Typ A,B (EIA) Pos for influenza b H 03/18/17 03/18/17 03/18/17 13:37 14:02 14:51 WBC RBC Hgb Hct MCV MCH MCHC RDW Plt Count MPV Neut % (Auto) Lymph % (Auto) [place] % (Auto) Eos % (Auto) Baso % (Auto) Neut # Lymph # [place] # Eos # Baso # PT 18.3 H INR 1.6 APTT 39 H pO2 30 VBG pH 7.31 L VBG pCO2 44 VBG HCO3 20.4 VBG Total CO2 23.6 VBG O2 Sat (Calc) 54.1 VBG Base Excess -4.1 L VBG Potassium 3.1 L Glucose 77 Lactate 3.2 H Sodium 141.0 Potassium Chloride 106.0 Carbon Dioxide Anion Gap BUN Creatinine Est GFR ( Amer) Est GFR (Non-Af Amer) POC Glucose (mg/dL) 72 Random Glucose Hemoglobin A1c Calcium Phosphorus Magnesium Total Bilirubin AST ALT Alkaline Phosphatase Total Creatine Kinase CK-MB (Mass) Troponin I Total Protein Albumin Globulin Albumin/Globulin Ratio Triglycerides Cholesterol LDL Cholesterol Direct HDL Cholesterol TSH 3rd Generation Venous Blood Potassium 3.1 L Influenza Typ A,B (EIA) 03/18/17 03/18/17 03/18/17 16:27 16:33 18:36 WBC RBC Hgb Hct MCV MCH MCHC RDW Plt Count MPV Neut % (Auto) Lymph % (Auto) [place] % (Auto) Eos % (Auto) Baso % (Auto) Neut # Lymph # [place] # Eos # Baso # PT INR APTT pO2 VBG pH VBG pCO2 VBG HCO3 VBG Total CO2 VBG O2 Sat (Calc) VBG Base Excess VBG Potassium Glucose Lactate Sodium Potassium Chloride Carbon Dioxide Anion Gap BUN Creatinine Est GFR ( Amer) Est GFR (Non-Af Amer) POC Glucose (mg/dL) 67 58 L 111 H Random Glucose Hemoglobin A1c Calcium Phosphorus Magnesium Total Bilirubin AST ALT Alkaline Phosphatase Total Creatine Kinase CK-MB (Mass) Troponin I Total Protein Albumin Globulin Albumin/Globulin Ratio Triglycerides Cholesterol LDL Cholesterol Direct HDL Cholesterol TSH 3rd Generation Venous Blood Potassium Influenza Typ A,B (EIA) 03/18/17 03/18/17 03/18/17 19:54 20:28 22:09 WBC RBC Hgb Hct MCV MCH MCHC RDW Plt Count MPV Neut % (Auto) Lymph % (Auto) [place] % (Auto) Eos % (Auto) Baso % (Auto) Neut # Lymph # [place] # Eos # Baso # PT INR APTT pO2 VBG pH VBG pCO2 VBG HCO3 VBG Total CO2 VBG O2 Sat (Calc) VBG Base Excess VBG Potassium Glucose Lactate Sodium Potassium Chloride Carbon Dioxide Anion Gap BUN Creatinine Est GFR ( Amer) Est GFR (Non-Af Amer) POC Glucose (mg/dL) 104 122 H Random Glucose Hemoglobin A1c Calcium Phosphorus Magnesium Total Bilirubin AST ALT Alkaline Phosphatase Total Creatine Kinase 99 CK-MB (Mass) 2.27 Troponin I 0.4160 H* Total Protein Albumin Globulin Albumin/Globulin Ratio Triglycerides Cholesterol LDL Cholesterol Direct HDL Cholesterol TSH 3rd Generation Venous Blood Potassium Influenza Typ A,B (EIA) 03/19/17 03/19/17 03/19/17 01:23 01:23 02:14 WBC RBC Hgb Hct MCV MCH MCHC RDW Plt Count MPV Neut % (Auto) Lymph % (Auto) [place] % (Auto) Eos % (Auto) Baso % (Auto) Neut # Lymph # [place] # Eos # Baso # PT 20.9 H INR 1.8 APTT 173 H* D pO2 VBG pH VBG pCO2 VBG HCO3 VBG Total CO2 VBG O2 Sat (Calc) VBG Base Excess VBG Potassium Glucose Lactate Sodium Potassium Chloride Carbon Dioxide Anion Gap BUN Creatinine Est GFR ( Amer) Est GFR (Non-Af Amer) POC Glucose (mg/dL) 86 Random Glucose Hemoglobin A1c Calcium Phosphorus Magnesium Total Bilirubin AST ALT Alkaline Phosphatase Total Creatine Kinase 223 H CK-MB (Mass) 3.25 Troponin I 1.1700 H* Total Protein Albumin Globulin Albumin/Globulin Ratio Triglycerides Cholesterol LDL Cholesterol Direct HDL Cholesterol TSH 3rd Generation Venous Blood Potassium Influenza Typ A,B (EIA) 03/19/17 03/19/17 03/19/17 06:29 07:25 07:25 WBC 5.9 RBC 3.80 L Hgb 12.0 Hct 35.8 MCV 94.2 H MCH 31.6 H MCHC 33.5 RDW 17.1 H Plt Count 58 L MPV 8.7 Neut % (Auto) 67.8 Lymph % (Auto) 21.2 [place] % (Auto) 9.8 Eos % (Auto) 0.1 Baso % (Auto) 1.1 Neut # 4.0 Lymph # 1.3 [place] # 0.6 Eos # 0.0 Baso # 0.1 PT INR APTT pO2 VBG pH VBG pCO2 VBG HCO3 VBG Total CO2 VBG O2 Sat (Calc) VBG Base Excess VBG Potassium Glucose Lactate Sodium Potassium Chloride Carbon Dioxide Anion Gap BUN Creatinine Est GFR ( Amer) Est GFR (Non-Af Amer) POC Glucose (mg/dL) 74 Random Glucose Hemoglobin A1c Calcium Phosphorus 5.4 H Magnesium 1.7 Total Bilirubin AST ALT Alkaline Phosphatase Total Creatine Kinase 425 H CK-MB (Mass) 6.93 H Troponin I Total Protein Albumin Globulin Albumin/Globulin Ratio Triglycerides 73 Cholesterol 111 LDL Cholesterol Direct 35 HDL Cholesterol 38 TSH 3rd Generation 2.29 Venous Blood Potassium Influenza Typ A,B (EIA) 03/19/17 03/19/17 03/19/17 07:25 11:53 11:57 WBC RBC Hgb Hct MCV MCH MCHC RDW Plt Count MPV Neut % (Auto) Lymph % (Auto) [place] % (Auto) Eos % (Auto) Baso % (Auto) Neut # Lymph # [place] # Eos # Baso # PT INR APTT pO2 VBG pH VBG pCO2 VBG HCO3 VBG Total CO2 VBG O2 Sat (Calc) VBG Base Excess VBG Potassium Glucose Lactate Sodium Potassium Chloride Carbon Dioxide Anion Gap BUN Creatinine Est GFR ( Amer) Est GFR (Non-Af Amer) POC Glucose (mg/dL) 67 74 Random Glucose Hemoglobin A1c 6.3 Calcium Phosphorus Magnesium Total Bilirubin AST ALT Alkaline Phosphatase Total Creatine Kinase CK-MB (Mass) Troponin I Total Protein Albumin Globulin Albumin/Globulin Ratio Triglycerides Cholesterol LDL Cholesterol Direct HDL Cholesterol TSH 3rd Generation Venous Blood Potassium Influenza Typ A,B (EIA) Assessment & Plan (1) Syncope Status: Acute (2) CKD (chronic kidney disease) requiring chronic dialysis Assessment and Plan: End stage renal disease on maintenance hemodialysis [facility] Wednesday [facility]. Admitted with syncope also some congestion . flu test + Patient scheduled to have dialysis now daughter was given ultrafiltration about 3577-4115 mL as tolerated Potassium bath 3 mEq Bicarbonate 34 As noted per primary team. We will order serum phosphorus and PTH Status: Acute
[2017-03-19 14:27] LABS: ALB/GLOB RATIO 0.8 (1.0-2.1); ALBUMIN 2.5 g/dL (3.5-5.0); CALCIUM 8.2 mg/dl (8.6-10.4)
[2017-03-19 14:46] LABS: CK-MB 9.03 ng/mL (0.0-3.38); TROPONIN I 4.23 ng/mL (0.00-0.120)
--- NOTE | 2017-03-19 15:19 | CP.PCM.CON ---
History of Present Illness - History of Present Illness History of Present Illness: Palliative consult requested for goals of care discussion Patient is a 72 yo male admitted from home after passing out while coughing. Patient has been couging since the day before. The granddaughter called 911 and was instructed over the phone how to do chest compressions until day arrived. Resuscitation was successful. Upon adm[facility] to [facility] blood sugar was found to be 30. CXR was significant for left pleural effusion. Zosyn IV on board. Patient's blood sugar is maintained WNL. TRPI level was elevated and is higher today 1.1700. 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 Hx: , lives with at home Fam Hx: denied kidney disease, DM runs in family Review of Systems - Review of Systems All systems: reviewed and no additional remarkable complaints except Review of Systems: ROS obtained from . Per patient has been complaining of being tired lately. Past Patient History - Infectious Disease Hx of Infectious Diseases: None - Past Medical History & Family History Past Medical History?: Yes - Past Social History Smoking Status: Never Smoked - CARDIAC Hx Congestive Heart Failure: Yes Hx Hypertension: Yes - PULMONARY Hx Pneumonia: Yes - NEUROLOGICAL HX Cerebrovascular Accident: Yes (left sided hemiparesis 2 yrs ago) - HEENT Hx HEENT Problems: Yes - RENAL Hx Chronic Kidney Disease: Yes (hemodialysis -w-- left av shunt) - ENDOCRINE/METABOLIC Hx Endocrine Disorders: Yes Hx Diabetes Mellitus Type 1: Yes Hx Diabetes Mellitus Type 2: Yes - HEMATOLOGICAL/ONCOLOGICAL Hx Human Immunodeficiency Virus (HIV): No - INTEGUMENTARY Hx Dermatological Problems: No - MUSCULOSKELETAL/RHEUMATOLOGICAL Hx Falls: Yes - GASTROINTESTINAL Hx Gastrointestinal Disorders: No - GENITOURINARY/GYNECOLOGICAL Hx Genitourinary Disorders: No Other/Comment: ANURIC - PSYCHIATRIC Hx Substance Use: No - SURGICAL HISTORY Hx Surgeries: Yes Hx Amputation: Yes (right big toe) Other/Comment: Left AV shunt - ANESTHESIA Hx Anesthesia: Yes Hx Anesthesia Reactions: No Hx Malignant Hyperthermia: No Meds Allergies/Adverse Reactions: Allergies Allergy/AdvReac Type Severity Reaction Status Date / Time No Known Allergies Allergy Verified 01/02/17 14:29 - Medications Medications: Current Medications Aspirin (Aspirin Chewable) 81 mg PO DAILY [facility] Last Admin: 03/19/17 09:36 Dose: 81 mg Carvedilol (Coreg) 12.5 mg PO Q12 [facility] Last Admin: 03/19/17 09:37 Dose: 12.5 mg Dextrose (Dextrose 50% Inj) 0 ml IV STAT PRN; Protocol PRN Reason: Hypoglycemia Protocol Last Admin: 03/18/17 16:43 Dose: 25 ml Dextrose (Glutose 15) 0 gm PO ONCE PRN; Protocol PRN Reason: Hypoglycemia Protocol Enalapril Maleate (Vasotec) 20 mg PO DAILY [facility] Last Admin: 03/19/17 09:36 Dose: 20 mg Glucagon (Glucagen Diagnostic Kit) 0 mg IM STAT PRN; Protocol PRN Reason: Hypoglycemia Protocol Hydralazine HCl (Apresoline) 75 mg PO DAILY [facility] Last Admin: 03/19/17 09:36 Dose: 75 mg Piperacillin Sod/Tazobactam Sod (Zosyn 2.25 Gm Iv Premix) 2.25 gm in 50 mls @ 100 mls/hr IVPB Q6H [facility] Last Admin: 03/19/17 09:37 Dose: 100 mls/hr Dextrose (Dextrose 5% In Water 1000 Ml) 1,000 mls @ 0 mls/hr IV .Q0M PRN; Protocol; Per Protocol PRN Reason: Hypoglycemia Protocol Last Admin: 03/18/17 16:41 Dose: 100 mls/hr Heparin Sodium/Sodium Chloride (Heparin 44028 Units/250ml 1/2 Normal Saline) 25 ,000 units in 250 mls @ 5.715 mls/hr IV .Q24H PRN; Protocol; 9 UNITS/KG/HR PRN Reason: ADJUST RATE PER PROTOCOL Last Admin: 03/19/17 03:12 Dose: 9 units/kg/hr, 5.715 mls/hr Insulin Human Regular (Novolin R) 0 unit SC ACHS [facility] PRN Reason: Protocol Last Admin: 03/19/17 12:20 Dose: Not Given Ondansetron HCl (Zofran Inj) 4 mg IVP Q6 PRN PRN Reason: Nausea/Vomiting Last Admin: 03/18/17 16:00 Dose: 4 mg Oseltamivir Phosphate (Tamiflu Susp) 30 mg PO DAILY@1800 [facility] Stop: 03/24/17 18:01 Pantoprazole Sodium (Protonix Ec Tab) 40 mg PO DAILY [facility] Last Admin: 03/19/17 09:36 Dose: 40 mg Vitamin B Complex/Vit C/Folic Acid (Nephro-Seth) 1 tab PO DAILY [facility] Last Admin: 03/19/17 09:36 Dose: 1 tab Physical Exam - Constitutional Appears: No Acute Distress, Chronically Ill - Head Exam Head Exam: ATRAUMATIC, NORMAL INSPECTION, NORMOCEPHALIC - Eye Exam Eye Exam: EOMI, Normal appearance, PERRL Pupil Exam: NORMAL ACCOMODATION, PERRL - ENT Exam ENT Exam: Mucous Membranes Moist, Normal Exam - Neck Exam Neck exam: Positive for: Normal Inspection - Respiratory Exam Respiratory Exam: Decreased Breath Sounds, Rhonchi, NORMAL BREATHING PATTERN - Cardiovascular Exam Cardiovascular Exam: REGULAR RHYTHM - GI/Abdominal Exam GI & Abdominal Exam: Diminished Bowel Sounds - Rectal Exam Rectal Exam: Deferred - Exam Additional comments: On HD - Extremities Exam Additional comments: old crusts - Back Exam Back exam: NORMAL INSPECTION - Neurological Exam Neurological exam: Alert - Psychiatric Exam Psychiatric exam: Flat Affect - Skin Skin Exam: Pallor, Warm Results - Vital Signs Recent Vital Signs: Last Vital Signs Temp 98.6 F 03/19/17 04:00 Pulse 79 03/19/17 09:35 Resp 20 03/19/17 04:00 BP 142/82 03/19/17 09:37 Pulse Ox 96 03/19/17 04:00 - Labs Result Diagrams: 03/19/17 07:25 03/19/17 13:47 Labs: Laboratory Results - last 24 hr 03/18/17 03/18/17 03/18/17 16:27 16:33 18:36 WBC RBC Hgb Hct MCV MCH MCHC RDW Plt Count MPV Neut % (Auto) Lymph % (Auto) [place] % (Auto) Eos % (Auto) Baso % (Auto) Neut # Lymph # [place] # Eos # Baso # PT INR APTT Sodium Potassium Chloride Carbon Dioxide Anion Gap BUN Creatinine Est GFR ( Amer) Est GFR (Non-Af Amer) POC Glucose (mg/dL) 67 58 L 111 H Random Glucose Hemoglobin A1c Calcium Phosphorus Magnesium Total Bilirubin AST ALT Alkaline Phosphatase Total Creatine Kinase CK-MB (Mass) Troponin I Total Protein Albumin Globulin Albumin/Globulin Ratio Triglycerides Cholesterol LDL Cholesterol Direct HDL Cholesterol TSH 3rd Generation 03/18/17 03/18/17 03/18/17 19:54 20:28 22:09 WBC RBC Hgb Hct MCV MCH MCHC RDW Plt Count MPV Neut % (Auto) Lymph % (Auto) [place] % (Auto) Eos % (Auto) Baso % (Auto) Neut # Lymph # [place] # Eos # Baso # PT INR APTT Sodium Potassium Chloride Carbon Dioxide Anion Gap BUN Creatinine Est GFR ( Amer) Est GFR (Non-Af Amer) POC Glucose (mg/dL) 104 122 H Random Glucose Hemoglobin A1c Calcium Phosphorus Magnesium Total Bilirubin AST ALT Alkaline Phosphatase Total Creatine Kinase 99 CK-MB (Mass) 2.27 Troponin I 0.4160 H* Total Protein Albumin Globulin Albumin/Globulin Ratio Triglycerides Cholesterol LDL Cholesterol Direct HDL Cholesterol TSH 3rd Generation 03/19/17 03/19/17 03/19/17 01:23 01:23 02:14 WBC RBC Hgb Hct MCV MCH MCHC RDW Plt Count MPV Neut % (Auto) Lymph % (Auto) [place] % (Auto) Eos % (Auto) Baso % (Auto) Neut # Lymph # [place] # Eos # Baso # PT 20.9 H INR 1.8 APTT 173 H* D Sodium Potassium Chloride Carbon Dioxide Anion Gap BUN Creatinine Est GFR ( Amer) Est GFR (Non-Af Amer) POC Glucose (mg/dL) 86 Random Glucose Hemoglobin A1c Calcium Phosphorus Magnesium Total Bilirubin AST ALT Alkaline Phosphatase Total Creatine Kinase 223 H CK-MB (Mass) 3.25 Troponin I 1.1700 H* Total Protein Albumin Globulin Albumin/Globulin Ratio Triglycerides Cholesterol LDL Cholesterol Direct HDL Cholesterol TSH 3rd Generation 03/19/17 03/19/17 03/19/17 06:29 07:25 07:25 WBC 5.9 RBC 3.80 L Hgb 12.0 Hct 35.8 MCV 94.2 H MCH 31.6 H MCHC 33.5 RDW 17.1 H Plt Count 58 L MPV 8.7 Neut % (Auto) 67.8 Lymph % (Auto) 21.2 [place] % (Auto) 9.8 Eos % (Auto) 0.1 Baso % (Auto) 1.1 Neut # 4.0 Lymph # 1.3 [place] # 0.6 Eos # 0.0 Baso # 0.1 PT INR APTT Sodium Potassium Chloride Carbon Dioxide Anion Gap BUN Creatinine Est GFR ( Amer) Est GFR (Non-Af Amer) POC Glucose (mg/dL) 74 Random Glucose Hemoglobin A1c Calcium Phosphorus 5.4 H Magnesium 1.7 Total Bilirubin AST ALT Alkaline Phosphatase Total Creatine Kinase 425 H CK-MB (Mass) 6.93 H Troponin I Total Protein Albumin Globulin Albumin/Globulin Ratio Triglycerides 73 Cholesterol 111 LDL Cholesterol Direct 35 HDL Cholesterol 38 TSH 3rd Generation 2.29 03/19/17 03/19/17 03/19/17 07:25 11:53 11:57 WBC RBC Hgb Hct MCV MCH MCHC RDW Plt Count MPV Neut % (Auto) Lymph % (Auto) [place] % (Auto) Eos % (Auto) Baso % (Auto) Neut # Lymph # [place] # Eos # Baso # PT INR APTT Sodium Potassium Chloride Carbon Dioxide Anion Gap BUN Creatinine Est GFR ( Amer) Est GFR (Non-Af Amer) POC Glucose (mg/dL) 67 74 Random Glucose Hemoglobin A1c 6.3 Calcium Phosphorus Magnesium Total Bilirubin AST ALT Alkaline Phosphatase Total Creatine Kinase CK-MB (Mass) Troponin I Total Protein Albumin Globulin Albumin/Globulin Ratio Triglycerides Cholesterol LDL Cholesterol Direct HDL Cholesterol TSH 3rd Generation 03/19/17 13:47 WBC RBC Hgb Hct MCV MCH MCHC RDW Plt Count MPV Neut % (Auto) Lymph % (Auto) [place] % (Auto) Eos % (Auto) Baso % (Auto) Neut # Lymph # [place] # Eos # Baso # PT INR APTT Sodium 127 L Potassium 3.7 Chloride 91 L Carbon Dioxide 26 Anion Gap 13 BUN 33 H Creatinine 3.7 H Est GFR ( Amer) 20 Est GFR (Non-Af Amer) 16 POC Glucose (mg/dL) Random Glucose 66 L Hemoglobin A1c Calcium 8.2 L Phosphorus Magnesium Total Bilirubin 1.9 H AST 167 H D ALT 75 H D Alkaline Phosphatase 228 H D Total Creatine Kinase 489 H CK-MB (Mass) 9.03 H Troponin I 4.2300 H* Total Protein 5.5 L Albumin 2.5 L D Globulin 3.0 Albumin/Globulin Ratio 0.8 L Triglycerides Cholesterol LDL Cholesterol Direct HDL Cholesterol TSH 3rd Generation Assessment & Plan - Assessment and Plan (Free Text) Assessment: Palliative consult No Advance directive was on chart, PPS 10% I reviewed medical records, all diagnostic studies, examined patient in the bed and discussed goals of care with his at bed side Patient is alert, responds to verbal and tactile stimuli, very lethargic, looking chronically ill. Skin is pale and dry. Ronchi on auscultation. Moist cough present. Abdomen flat and soft. few dry crust on right knee. Limited active and passive ROM to right side. Left side flaccid. BP 142/82, HR 79, afebrile. last blood sugar today was 67. Goals of care discussed with . The She reported that since CVA in 2011 patient become bed bound and his condition has declined significantly. Sindy is the only healthcare analyst. She admits having difficulties taking care of patient as she hurt her back while taking patient OOB to on her own. Due to health insurance policies, patent dos not qualify for collet maker, as per . Sindy recalls that patient on multiple occasions has told her that he was tired and did not want HD any more. Sindy states this was witnessed by Doctor Curtis Ventura who is patient's PCP and who does home visits for patient. Per , patient also had told her that if his condition declines even more he would want to be allowed natural without use of aggressive interventions. Code status discussed. Mrs. Octavio Callahan choose DNR/DNI as those were her 's wishes. This was shared with Paulina MCKEON. Agree with DNR/DNI POL on chartMary is considering comfort care and cessation of HD as per 's wishes. She was to talk to her family, monitor her condition and than make decision. Impression * This is a very sick man with poor quality of life and unexpected recovery * Per , patient has wished for natural when it comes * Patient reports being tired and wanted to stop with HD * admits not being able to take care of him alone and wishes she was given some help * is considering Comfort care only as per patient's wishes Suggestions * Agree with DNR/DNI, POL on chart * Would consider [facility] for IV antibiotics , preferable [facility] as they have HD unit * Please refer patient to [facility] for assistance with ADLs at home Thank you for consulting Palliative Care
--- NOTE | 2017-03-19 19:16 | CP.PCM.CON ---
History of Present Illness - History of Present Illness History of Present Illness: 72 year old male brought to the hospital due to c/o coughing and passing out, . Patient has been coughing for about a wk and in ER a cxr showed b/l pl effusion, left > right, which has been similar in the past, influenza b positive. ID consulted for antibiotic management- pneumonia/ influenza PMH with a history of ESRD on dialysis three times a week, CVA with left sided paralysis about 12 yrs, CHF systolic dysfunction, ischemic cardiomyopathy s/p stents about 12 yrs back, recently declined AICD, due to chronic mobidity in December 2016, HTN, and DM. PSH left arm av fistula Social lives with , wheel chair bound, ex smoking 25 yrs back, denies alcohol Family history not contributory Allergies NKDA His rhythm on EKG in the past has been sinus of variant of sinus, but today was irregularly irregular without clear noticeable p waves suspicious of Afib, although QSR was RBBB unchanged from prior ekg Review of Systems - Constitutional Constitutional: As Per HPI - EENT Eyes: absent: As Per HPI, Blind Spots, Blurred Vision, Change in Vision, Decreased Night Vision, Diplopia, Discharge, Dry Eye, Exophthalmos, Floaters, Irritation, Itchy Eyes, Loss of Peripheral Vision, Pain, Photophobia, Requires Corrective Lenses, Sees Flashes, Spots in Vision, Tunnel Vision, Other Visual Disturbances, Loss of Vision, Other Ears: absent: As Per HPI, Decreased Hearing, Ear Discharge, Ear Pain, Tinnitus, Abnormal Hearing, Disequilibrium, Dizziness, Other Nose/Mouth/Throat: absent: As Per HPI, Epistaxis, Nasal Congestion, Nasal Discharge, Nasal Obstruction, Nasal Trauma, Nose Pain, Post Nasal Drip, Sinus Pain, Sinus Pressure, Bleeding Gums, Change in Voice, Dental Pain, Dry Mouth, Dysphagia, Halitosis, Hoarsness, Lip Swelling, Mouth Lesions, Mouth Pain, Odynophagia, Sore Throat, Throat Swelling, Tongue Swelling, Facial Pain, Neck Pain, Neck Mass, Other - Cardiovascular Cardiovascular: As Per HPI - Respiratory Respiratory: As Per HPI - Gastrointestinal Gastrointestinal: absent: As Per HPI, Abdominal Pain, Belching, Bloating, Change in Bowel Habits, Change in Stool Character, Coffee Ground Emesis, Constipation, Cramping, Diarrhea, Dyspepsia, Dysphagia, Early Satiety, Excessive Flatus, Fecal Incontinence, Heartburn, Hematemesis, Hematochezia, Loose Stools, Melena, Nausea, Odynophagia, Temesmus, Vomiting, Other - Genitourinary Genitourinary: absent: As Per HPI, Change in Urinary Stream, Difficulty Urinating, Dysuria, Flank Pain, Hematuria, Pyuria, Nocturia, Urinary Incontinence, Urinary Frequency, Urinary Hesitance, Urinary Urgency, Voiding Freq/Small Amts, Freq UTI, Hx Renal/Bladder Calculi, Hx /Renal Surgery, Bladder Distension, Other - Musculoskeletal Musculoskeletal: absent: As Per HPI, Abnormal Gait, Arthralgias, Atrophy, Back Pain, Deformity, Joint Swelling, Limited Range of Motion, Loss of Height, Muscle Cramps, Muscle Weakness, Myalgias, Neck Pain, Numbness, Radiating Pain into Limb, Stiffness, Tingling, Other - Integumentary Integumentary: absent: As Per HPI, Acne, Alopecia, Bleeding Lesions, Change in Hair, Change in Nails, Change in Pigmentation, Changing Lesions, Dry Skin, Erythema, Furuncle, Hirsutism, Lesions, New Lesions, Non-Healing Lesions, Photosensitivity, Pruritus, Rash, Skin Pain, Skin Ulcer, Sores, Striae, Swelling , Unusual Bruising, Wounds, Jaundice, Other - Neurological Neurological: As Per HPI - Psychiatric Psychiatric: absent: As Per HPI, Abnormal Sleep Pattern, Anhedonia, Anxiety, Auditory Hallucinations, Behavioral Changes, Change in Appetite, Change in Libido, Confusion, Depression, Difficulty Concentrating, Hallucinations, Homicidal Ideation, Hopelessness, Irritability, Memory Loss, Mood Swings, Panic Attacks, Paranoia, Suicidal Ideation, Visual Hallucinations, Tactile Hallucinations, Other - Endocrine Endocrine: absent: As Per HPI, Change in Body Appearance, Change in Libido, Cold Intolorance, Deepening of Voice, Excessive Sweating, Fatigue, Flushing, Heat Intolorance, Increase in Ring/Shoe/Hat Size, Palpitations, Polydipsia, Polyphagia, Polyuria, Other - Hematologic/Lymphatic Hematologic: absent: As Per HPI, Easy Bleeding, Easy Bruising, Lymphadenopathy, Other Past Patient History - Infectious Disease Hx of Infectious Diseases: None - Past Medical History & Family History Past Medical History?: Yes - Past Social History Smoking Status: Never Smoked - CARDIAC Hx Congestive Heart Failure: Yes Hx Hypertension: Yes - PULMONARY Hx Pneumonia: Yes - NEUROLOGICAL HX Cerebrovascular Accident: Yes (left sided hemiparesis 2 yrs ago) - HEENT Hx HEENT Problems: Yes - RENAL Hx Chronic Kidney Disease: Yes (hemodialysis m-w-f- left av shunt) - ENDOCRINE/METABOLIC Hx Endocrine Disorders: Yes Hx Diabetes Mellitus Type 1: Yes Hx Diabetes Mellitus Type 2: Yes - HEMATOLOGICAL/ONCOLOGICAL Hx Human Immunodeficiency Virus (HIV): No - INTEGUMENTARY Hx Dermatological Problems: No - MUSCULOSKELETAL/RHEUMATOLOGICAL Hx Falls: Yes - GASTROINTESTINAL Hx Gastrointestinal Disorders: No - GENITOURINARY/GYNECOLOGICAL Hx Genitourinary Disorders: No Other/Comment: ANURIC - PSYCHIATRIC Hx Substance Use: No - SURGICAL HISTORY Hx Surgeries: Yes Hx Amputation: Yes (right big toe) Other/Comment: Left AV shunt - ANESTHESIA Hx Anesthesia: Yes Hx Anesthesia Reactions: No Hx Malignant Hyperthermia: No Meds Allergies/Adverse Reactions: Allergies Allergy/AdvReac Type Severity Reaction Status Date / Time No Known Allergies Allergy Verified 01/02/17 14:29 - Medications Medications: Current Medications Aspirin (Aspirin Chewable) 81 mg PO DAILY [facility] Last Admin: 03/19/17 09:36 Dose: 81 mg Carvedilol (Coreg) 12.5 mg PO Q12 [facility] Last Admin: 03/19/17 09:37 Dose: 12.5 mg Dextrose (Dextrose 50% Inj) 0 ml IV STAT PRN; Protocol PRN Reason: Hypoglycemia Protocol Last Admin: 03/18/17 16:43 Dose: 25 ml Dextrose (Glutose 15) 0 gm PO ONCE PRN; Protocol PRN Reason: Hypoglycemia Protocol Enalapril Maleate (Vasotec) 20 mg PO DAILY [facility] Last Admin: 03/19/17 09:36 Dose: 20 mg Glucagon (Glucagen Diagnostic Kit) 0 mg IM STAT PRN; Protocol PRN Reason: Hypoglycemia Protocol Hydralazine HCl (Apresoline) 75 mg PO DAILY [facility] Last Admin: 03/19/17 09:36 Dose: 75 mg Piperacillin Sod/Tazobactam Sod (Zosyn 2.25 Gm Iv Premix) 2.25 gm in 50 mls @ 100 mls/hr IVPB Q6H [facility] Last Admin: 03/19/17 09:37 Dose: 100 mls/hr Dextrose (Dextrose 5% In Water 1000 Ml) 1,000 mls @ 0 mls/hr IV .Q0M PRN; Protocol; Per Protocol PRN Reason: Hypoglycemia Protocol Last Admin: 03/18/17 16:41 Dose: 100 mls/hr Heparin Sodium/Sodium Chloride (Heparin 73957 Units/250ml 1/2 Normal Saline) 25 ,000 units in 250 mls @ 5.715 mls/hr IV .Q24H PRN; Protocol; 9 UNITS/KG/HR PRN Reason: ADJUST RATE PER PROTOCOL Last Admin: 03/19/17 03:12 Dose: 9 units/kg/hr, 5.715 mls/hr Insulin Human Regular (Novolin R) 0 unit SC ACHS [facility] PRN Reason: Protocol Last Admin: 03/19/17 12:20 Dose: Not Given Ondansetron HCl (Zofran Inj) 4 mg IVP Q6 PRN PRN Reason: Nausea/Vomiting Last Admin: 03/18/17 16:00 Dose: 4 mg Oseltamivir Phosphate (Tamiflu Susp) 30 mg PO DAILY@1800 [facility] Stop: 03/24/17 18:01 Pantoprazole Sodium (Protonix Ec Tab) 40 mg PO DAILY [facility] Last Admin: 03/19/17 09:36 Dose: 40 mg Vitamin B Complex/Vit C/Folic Acid (Nephro-Seth) 1 tab PO DAILY [facility] Last Admin: 03/19/17 09:36 Dose: 1 tab Physical Exam - Constitutional Appears: No Acute Distress, Cachectic, Chronically Ill - Head Exam Head Exam: ATRAUMATIC, NORMOCEPHALIC - Eye Exam Eye Exam: PERRL. absent: Scleral icterus - ENT Exam ENT Exam: Mucous Membranes Dry, Normal External Ear Exam, Normal Oropharynx - Neck Exam Neck exam: Negative for: Lymphadenopathy, Thyromegaly - Respiratory Exam Respiratory Exam: Decreased Breath Sounds, Rales, Rhonchi - Cardiovascular Exam Cardiovascular Exam: REGULAR RHYTHM, +S1, +S2 - GI/Abdominal Exam GI & Abdominal Exam: Diminished Bowel Sounds, Distended, Soft. absent: Guarding , Rebound, Rigid, Tenderness - Rectal Exam Rectal Exam: Deferred - Exam Exam: NORMAL INSPECTION - Extremities Exam Extremities exam: Positive for: pedal pulses present. Negative for: calf tenderness, pedal edema, tenderness - Back Exam Back exam: absent: CVA tenderness (L), CVA tenderness (R) - Neurological Exam Neurological exam: Alert, CN II-XII Intact - Psychiatric Exam Psychiatric exam: Depressed - Skin Skin Exam: Dry Results - Vital Signs Recent Vital Signs: Last Vital Signs Temp 97.8 F 03/19/17 15:20 Pulse 66 03/19/17 15:20 Resp 20 03/19/17 15:30 BP 121/62 03/19/17 16:00 Pulse Ox 100 03/19/17 15:30 - Labs Result Diagrams: 03/19/17 07:25 03/19/17 13:47 Labs: Laboratory Results - last 24 hr 03/18/17 03/18/17 03/18/17 19:54 20:28 22:09 WBC RBC Hgb Hct MCV MCH MCHC RDW Plt Count MPV Neut % (Auto) Lymph % (Auto) [place] % (Auto) Eos % (Auto) Baso % (Auto) Neut # Lymph # [place] # Eos # Baso # PT INR APTT Sodium Potassium Chloride Carbon Dioxide Anion Gap BUN Creatinine Est GFR ( Amer) Est GFR (Non-Af Amer) POC Glucose (mg/dL) 104 122 H Random Glucose Hemoglobin A1c Calcium Phosphorus Magnesium Total Bilirubin AST ALT Alkaline Phosphatase Total Creatine Kinase 99 CK-MB (Mass) 2.27 Troponin I 0.4160 H* Total Protein Albumin Globulin Albumin/Globulin Ratio Triglycerides Cholesterol LDL Cholesterol Direct HDL Cholesterol TSH 3rd Generation 03/19/17 03/19/17 03/19/17 01:23 01:23 02:14 WBC RBC Hgb Hct MCV MCH MCHC RDW Plt Count MPV Neut % (Auto) Lymph % (Auto) [place] % (Auto) Eos % (Auto) Baso % (Auto) Neut # Lymph # [place] # Eos # Baso # PT 20.9 H INR 1.8 APTT 173 H* D Sodium Potassium Chloride Carbon Dioxide Anion Gap BUN Creatinine Est GFR ( Amer) Est GFR (Non-Af Amer) POC Glucose (mg/dL) 86 Random Glucose Hemoglobin A1c Calcium Phosphorus Magnesium Total Bilirubin AST ALT Alkaline Phosphatase Total Creatine Kinase 223 H CK-MB (Mass) 3.25 Troponin I 1.1700 H* Total Protein Albumin Globulin Albumin/Globulin Ratio Triglycerides Cholesterol LDL Cholesterol Direct HDL Cholesterol TSH 3rd Generation 03/19/17 03/19/17 03/19/17 06:29 07:25 07:25 WBC 5.9 RBC 3.80 L Hgb 12.0 Hct 35.8 MCV 94.2 H MCH 31.6 H MCHC 33.5 RDW 17.1 H Plt Count 58 L MPV 8.7 Neut % (Auto) 67.8 Lymph % (Auto) 21.2 [place] % (Auto) 9.8 Eos % (Auto) 0.1 Baso % (Auto) 1.1 Neut # 4.0 Lymph # 1.3 [place] # 0.6 Eos # 0.0 Baso # 0.1 PT INR APTT Sodium Potassium Chloride Carbon Dioxide Anion Gap BUN Creatinine Est GFR ( Amer) Est GFR (Non-Af Amer) POC Glucose (mg/dL) 74 Random Glucose Hemoglobin A1c Calcium Phosphorus 5.4 H Magnesium 1.7 Total Bilirubin AST ALT Alkaline Phosphatase Total Creatine Kinase 425 H CK-MB (Mass) 6.93 H Troponin I Total Protein Albumin Globulin Albumin/Globulin Ratio Triglycerides 73 Cholesterol 111 LDL Cholesterol Direct 35 HDL Cholesterol 38 TSH 3rd Generation 2.29 03/19/17 03/19/17 03/19/17 07:25 11:53 11:57 WBC RBC Hgb Hct MCV MCH MCHC RDW Plt Count MPV Neut % (Auto) Lymph % (Auto) [place] % (Auto) Eos % (Auto) Baso % (Auto) Neut # Lymph # [place] # Eos # Baso # PT INR APTT Sodium Potassium Chloride Carbon Dioxide Anion Gap BUN Creatinine Est GFR ( Amer) Est GFR (Non-Af Amer) POC Glucose (mg/dL) 67 74 Random Glucose Hemoglobin A1c 6.3 Calcium Phosphorus Magnesium Total Bilirubin AST ALT Alkaline Phosphatase Total Creatine Kinase CK-MB (Mass) Troponin I Total Protein Albumin Globulin Albumin/Globulin Ratio Triglycerides Cholesterol LDL Cholesterol Direct HDL Cholesterol TSH 3rd Generation 03/19/17 03/19/17 13:47 15:54 WBC RBC Hgb Hct MCV MCH MCHC RDW Plt Count MPV Neut % (Auto) Lymph % (Auto) [place] % (Auto) Eos % (Auto) Baso % (Auto) Neut # Lymph # [place] # Eos # Baso # PT INR APTT 79 H D Sodium 127 L Potassium 3.7 Chloride 91 L Carbon Dioxide 26 Anion Gap 13 BUN 33 H Creatinine 3.7 H Est GFR ( Amer) 20 Est GFR (Non-Af Amer) 16 POC Glucose (mg/dL) Random Glucose 66 L Hemoglobin A1c Calcium 8.2 L Phosphorus Magnesium Total Bilirubin 1.9 H AST 167 H D ALT 75 H D Alkaline Phosphatase 228 H D Total Creatine Kinase 489 H CK-MB (Mass) 9.03 H Troponin I 4.2300 H* Total Protein 5.5 L Albumin 2.5 L D Globulin 3.0 Albumin/Globulin Ratio 0.8 L Triglycerides Cholesterol LDL Cholesterol Direct HDL Cholesterol TSH 3rd Generation Assessment & Plan (1) Atrial fibrillation Status: Acute (2) CKD (chronic kidney disease) requiring chronic dialysis Status: Acute (3) Elevated LFTs Status: Acute (4) Hyperbilirubinemia Status: Acute (5) Hyperlipidemia Status: Acute (6) Influenza Status: Acute (7) NSTEMI (non-ST elevated myocardial infarction) Status: Acute (8) Pneumonia Status: Acute (9) Syncope Status: Acute (10) Atelectasis of left lung Status: Acute (11) Chronic kidney disease, stage V requiring chronic dialysis Status: Acute - Assessment and Plan (Free Text) Assessment: check cultures blood urine sputum started tamiflu and empiric IV antibiotics
[2017-03-19] MEDS: Oseltamivir 6 MG/ML PO SCH (20:26)
--- NOTE | 2017-03-19 20:49 | US ---
EXAM: US Abdomen Complete CLINICAL HISTORY: 72 years old, male; Signs and symptoms; Other: Jaundice , elevated t. Bili; Patient HX: Pt had CT today see CT report please; Additional info: Jaundice, elevated t. Bili TECHNIQUE: Real-time ultrasound of the abdomen (complete) with image documentation. COMPARISON: CT - ABD PELVIS W/O PO OR IV CONT 2017-03-19 11:38 FINDINGS: Liver: Liver measured at 13.7 cm. Heterogeneous echotexture with increased echogenicity and nodular contour. Gallbladder: Cholelithiasis. Gallbladder wall thickening measuring approximately 5 mm. Common bile duct: No No dilation. Pancreas: Not clearly visualized. Kidneys: Renal atrophy. Right kidney measured 8 cm. Left kidney measured at 6.8 cm. Increased echogenicity. No hydronephrosis. Evidence of calcifications, may be vascular. Spleen: No splenomegaly. Aorta/IVC: Limited evaluation. Bilateral pleural effusions. Ascites. IMPRESSION: Appearance of liver concerning for cirrhosis. Ascites. Bilateral pleural effusions. Cholelithiasis. Gallbladder wall thickening measuring approximately 5 mm, this can be seen in ascites. If there is concern for acute cholecystitis, nuclear hepatobiliary scan can aid in evaluation. Renal atrophy. Additional details/findings as above.
--- NOTE | 2017-03-19 22:58 | CP.PCM.CON ---
History of Present Illness - History of Present Illness History of Present Illness: CC: Reason for Consult: Non STEMI and A Fib Patient is a 72 year old male with a history of ESRD on dialysis three times a week, CVA with left sided paralysis about 12 yrs, CHF systolic dysfunction, ischemic cardiomyopathy s/p stents about 12 yrs back, recently declined AICD, due to chronic mobidity in December 2016, HTN, and DM. Patient brought to the hospital due to c/o coughing and passing out, provided by during earlier interview. Patient has been coughing for about a wk, cxr show b/l pl effusion, left > right, which has been similar in the past, influenza b positive. ICU eval called for indeterminant troponin. Patient denies chest pain, worsening sob , orthpenea. He is very sedentary, and was in no distress, alert oriented. PMH as above PSH left arm av fistula Social lives with , wheel chair bound, ex smoking 25 yrs back, denies alcohol Family history not contributory Allergies NKDA His rhythm on EKG in the past has been sinus of variant of sinus, but today was irregularly irregular without clear noticeable p waves suspicious of Afib, although QSR was RBBB unchanged from prior ekg Review of Systems - Review of Systems All systems: reviewed and no additional remarkable complaints except (HPI) Physical Exam - Additional Findings Additional findings: * HEENT SYLVIE * Neck Supple * Chest reduced in basis, b/l, * CVS irregular rhythm rate of 70/min * PA soft, nt, bs present * Ext no edema contracture in left leg, left arm, av fistula in left arm * [employer]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 Past Patient History - Infectious Disease Hx of Infectious Diseases: None - Past Medical History & Family History Past Medical History?: Yes - Past Social History Smoking Status: Never Smoked - CARDIAC Hx Congestive Heart Failure: Yes Hx Hypertension: Yes - PULMONARY Hx Pneumonia: Yes - NEUROLOGICAL HX Cerebrovascular Accident: Yes (left sided hemiparesis 2 yrs ago) - HEENT Hx HEENT Problems: Yes - RENAL Hx Chronic Kidney Disease: Yes (hemodialysis m-w-f- left av shunt) - ENDOCRINE/METABOLIC Hx Endocrine Disorders: Yes Hx Diabetes Mellitus Type 1: Yes Hx Diabetes Mellitus Type 2: Yes - HEMATOLOGICAL/ONCOLOGICAL Hx Human Immunodeficiency Virus (HIV): No - INTEGUMENTARY Hx Dermatological Problems: No - MUSCULOSKELETAL/RHEUMATOLOGICAL Hx Falls: Yes - GASTROINTESTINAL Hx Gastrointestinal Disorders: No - GENITOURINARY/GYNECOLOGICAL Hx Genitourinary Disorders: No Other/Comment: ANURIC - PSYCHIATRIC Hx Substance Use: No - SURGICAL HISTORY Hx Surgeries: Yes Hx Amputation: Yes (right big toe) Other/Comment: Left AV shunt - ANESTHESIA Hx Anesthesia: Yes Hx Anesthesia Reactions: No Hx Malignant Hyperthermia: No Meds Allergies/Adverse Reactions: Allergies Allergy/AdvReac Type Severity Reaction Status Date / Time No Known Allergies Allergy Verified 01/02/17 14:29 - Medications Medications: Current Medications Aspirin (Aspirin Chewable) 81 mg PO DAILY [facility] Last Admin: 03/19/17 09:36 Dose: 81 mg Carvedilol (Coreg) 12.5 mg PO Q12 [facility] Last Admin: 03/19/17 22:05 Dose: 12.5 mg Dextrose (Dextrose 50% Inj) 0 ml IV STAT PRN; Protocol PRN Reason: Hypoglycemia Protocol Last Admin: 03/18/17 16:43 Dose: 25 ml Dextrose (Glutose 15) 0 gm PO ONCE PRN; Protocol PRN Reason: Hypoglycemia Protocol Enalapril Maleate (Vasotec) 20 mg PO DAILY [facility] Last Admin: 03/19/17 09:36 Dose: 20 mg Glucagon (Glucagen Diagnostic Kit) 0 mg IM STAT PRN; Protocol PRN Reason: Hypoglycemia Protocol Hydralazine HCl (Apresoline) 75 mg PO DAILY [facility] Last Admin: 03/19/17 09:36 Dose: 75 mg Piperacillin Sod/Tazobactam Sod (Zosyn 2.25 Gm Iv Premix) 2.25 gm in 50 mls @ 100 mls/hr IVPB Q6H [facility] Last Admin: 03/19/17 22:05 Dose: 100 mls/hr Dextrose (Dextrose 5% In Water 1000 Ml) 1,000 mls @ 0 mls/hr IV .Q0M PRN; Protocol; Per Protocol PRN Reason: Hypoglycemia Protocol Last Admin: 03/18/17 16:41 Dose: 100 mls/hr Heparin Sodium/Sodium Chloride (Heparin 64229 Units/250ml 1/2 Normal Saline) 25 ,000 units in 250 mls @ 5.715 mls/hr IV .Q24H PRN; Protocol; 9 UNITS/KG/HR PRN Reason: ADJUST RATE PER PROTOCOL Last Admin: 03/19/17 03:12 Dose: 9 units/kg/hr, 5.715 mls/hr Insulin Human Regular (Novolin R) 0 unit SC [facility] PRN Reason: Protocol Last Admin: 03/19/17 22:07 Dose: Not Given Ondansetron HCl (Zofran Inj) 4 mg IVP Q6 PRN PRN Reason: Nausea/Vomiting Last Admin: 03/18/17 16:00 Dose: 4 mg Oseltamivir Phosphate (Tamiflu Susp) 30 mg PO DAILY@1800 [facility] Stop: 03/24/17 18:01 Last Admin: 03/19/17 20:26 Dose: 30 mg Pantoprazole Sodium (Protonix Ec Tab) 40 mg PO DAILY [facility] Last Admin: 03/19/17 09:36 Dose: 40 mg Vitamin B Complex/Vit C/Folic Acid (Nephro-Seth) 1 tab PO DAILY [facility] Last Admin: 03/19/17 09:36 Dose: 1 tab Results - Vital Signs Recent Vital Signs: Last Vital Signs Temp 98.3 F 03/19/17 20:15 Pulse 78 03/19/17 20:15 Resp 18 03/19/17 20:15 BP 138/75 03/19/17 22:05 Pulse Ox 100 03/19/17 15:30 - Labs Result Diagrams: 03/19/17 07:25 03/19/17 13:47 Labs: Laboratory Results - last 24 hr 03/19/17 03/19/17 03/19/17 01:23 01:23 02:14 WBC RBC Hgb Hct MCV MCH MCHC RDW Plt Count MPV Neut % (Auto) Lymph % (Auto) [place] % (Auto) Eos % (Auto) Baso % (Auto) Neut # Lymph # [place] # Eos # Baso # PT 20.9 H INR 1.8 APTT 173 H* D Sodium Potassium Chloride Carbon Dioxide Anion Gap BUN Creatinine Est GFR ( Amer) Est GFR (Non-Af Amer) POC Glucose (mg/dL) 86 Random Glucose Hemoglobin A1c Calcium Phosphorus Magnesium Total Bilirubin AST ALT Alkaline Phosphatase Total Creatine Kinase 223 H CK-MB (Mass) 3.25 Troponin I 1.1700 H* Total Protein Albumin Globulin Albumin/Globulin Ratio Triglycerides Cholesterol LDL Cholesterol Direct HDL Cholesterol TSH 3rd Generation Hep Bs Antigen 03/19/17 03/19/17 03/19/17 06:29 07:25 07:25 WBC 5.9 RBC 3.80 L Hgb 12.0 Hct 35.8 MCV 94.2 H MCH 31.6 H MCHC 33.5 RDW 17.1 H Plt Count 58 L MPV 8.7 Neut % (Auto) 67.8 Lymph % (Auto) 21.2 [place] % (Auto) 9.8 Eos % (Auto) 0.1 Baso % (Auto) 1.1 Neut # 4.0 Lymph # 1.3 [place] # 0.6 Eos # 0.0 Baso # 0.1 PT INR APTT Sodium Potassium Chloride Carbon Dioxide Anion Gap BUN Creatinine Est GFR ( Amer) Est GFR (Non-Af Amer) POC Glucose (mg/dL) 74 Random Glucose Hemoglobin A1c Calcium Phosphorus 5.4 H Magnesium 1.7 Total Bilirubin AST ALT Alkaline Phosphatase Total Creatine Kinase 425 H CK-MB (Mass) 6.93 H Troponin I Total Protein Albumin Globulin Albumin/Globulin Ratio Triglycerides 73 Cholesterol 111 LDL Cholesterol Direct 35 HDL Cholesterol 38 TSH 3rd Generation 2.29 Hep Bs Antigen 03/19/17 03/19/17 03/19/17 07:25 11:53 11:57 WBC RBC Hgb Hct MCV MCH MCHC RDW Plt Count MPV Neut % (Auto) Lymph % (Auto) [place] % (Auto) Eos % (Auto) Baso % (Auto) Neut # Lymph # [place] # Eos # Baso # PT INR APTT Sodium Potassium Chloride Carbon Dioxide Anion Gap BUN Creatinine Est GFR ( Amer) Est GFR (Non-Af Amer) POC Glucose (mg/dL) 67 74 Random Glucose Hemoglobin A1c 6.3 Calcium Phosphorus Magnesium Total Bilirubin AST ALT Alkaline Phosphatase Total Creatine Kinase CK-MB (Mass) Troponin I Total Protein Albumin Globulin Albumin/Globulin Ratio Triglycerides Cholesterol LDL Cholesterol Direct HDL Cholesterol TSH 3rd Generation Hep Bs Antigen 03/19/17 03/19/17 03/19/17 13:47 15:54 19:20 WBC RBC Hgb Hct MCV MCH MCHC RDW Plt Count MPV Neut % (Auto) Lymph % (Auto) [place] % (Auto) Eos % (Auto) Baso % (Auto) Neut # Lymph # [place] # Eos # Baso # PT INR APTT 79 H D Sodium 127 L Potassium 3.7 Chloride 91 L Carbon Dioxide 26 Anion Gap 13 BUN 33 H Creatinine 3.7 H Est GFR ( Amer) 20 Est GFR (Non-Af Amer) 16 POC Glucose (mg/dL) Random Glucose 66 L Hemoglobin A1c Calcium 8.2 L Phosphorus Magnesium Total Bilirubin 1.9 H AST 167 H D ALT 75 H D Alkaline Phosphatase 228 H D Total Creatine Kinase 489 H CK-MB (Mass) 9.03 H Troponin I 4.2300 H* Total Protein 5.5 L Albumin 2.5 L D Globulin 3.0 Albumin/Globulin Ratio 0.8 L Triglycerides Cholesterol LDL Cholesterol Direct HDL Cholesterol TSH 3rd Generation Hep Bs Antigen Negative 03/19/17 03/19/17 03/19/17 21:48 21:50 21:51 WBC RBC Hgb Hct MCV MCH MCHC RDW Plt Count MPV Neut % (Auto) Lymph % (Auto) [place] % (Auto) Eos % (Auto) Baso % (Auto) Neut # Lymph # [place] # Eos # Baso # PT INR APTT 90 H D Sodium Potassium Chloride Carbon Dioxide Anion Gap BUN Creatinine Est GFR ( Amer) Est GFR (Non-Af Amer) POC Glucose (mg/dL) 60 L 68 Random Glucose Hemoglobin A1c Calcium Phosphorus Magnesium Total Bilirubin AST ALT Alkaline Phosphatase Total Creatine Kinase CK-MB (Mass) Troponin I Total Protein Albumin Globulin Albumin/Globulin Ratio Triglycerides Cholesterol LDL Cholesterol Direct HDL Cholesterol TSH 3rd Generation Hep Bs Antigen Assessment & Plan - Assessment and Plan (Free Text) Assessment: (1) Atrial fibrillation Assessment & Plan: Heparin drop, his rate has been controlled with a HR around the 70s. Status: Acute (2) NSTEMI (non-ST elevated myocardial infarction) Assessment & Plan: Aspirin 81mg and Heparin drip. Status: Acute (3) Elevated LFTs Assessment & Plan: Follow up Abdominal US and also GI consult. Status: Acute (4) Hyperbilirubinemia Assessment & Plan: T. Bili is 1.8, follow up direct T. Bili. Status: Acute (5) IDDM (insulin dependent diabetes mellitus) Assessment & Plan: Patient has been having hypoglyemic episodes per patient's family, will do accu checks with sliding scale. Status: Chronic (6) HTN (hypertension) Assessment & Plan: continue current medication. Status: Chronic (7) CVA, old, hemiparesis Assessment & Plan: continue reposition of patient, will need to check for pressure ulcers. PT and OT. Status: Chronic (8) Chronic kidney disease, stage V requiring chronic dialysis Assessment & Plan: Dialysis. Status: Acute (11) Prophylactic measure Assessment & Plan: Heparin drip, protonix, SCDs pallative care consult, patient is DNR/DNI. Status: Acute
--- NOTE | 2017-03-19 23:05 | CP.PCM.PN ---
Subjective - Date & Time of Evaluation Date of Evaluation: 03/19/17 Time of Evaluation: 17:20 - Subjective Subjective: Patient seen and evaluated Lethargic and non verbal Physical Exam - Additional Findings Additional findings: * HEENT SYLVIE * Neck Supple * Chest reduced in basis, b/l, * CVS irregular rhythm rate of 70/min * PA soft, nt, bs present * Ext no edema contracture in left leg, left arm, av fistula in left arm * [employer]SM[employer]ION awake oriented left sided paralysis, speech slurred * Skin dry, warm, slight low turgor. Objective - Vital Signs/Intake and Output Vital Signs (last 24 hours): Temp Pulse Resp BP Pulse Ox 98.3 F 78 18 138/75 100 03/19/17 20:15 03/19/17 20:15 03/19/17 20:15 03/19/17 22:05 03/19/17 15:30 - Medications Medications: Current Medications Aspirin (Aspirin Chewable) 81 mg PO DAILY [facility] Last Admin: 03/19/17 09:36 Dose: 81 mg Carvedilol (Coreg) 12.5 mg PO Q12 [facility] Last Admin: 03/19/17 22:05 Dose: 12.5 mg Dextrose (Dextrose 50% Inj) 0 ml IV STAT PRN; Protocol PRN Reason: Hypoglycemia Protocol Last Admin: 03/18/17 16:43 Dose: 25 ml Dextrose (Glutose 15) 0 gm PO ONCE PRN; Protocol PRN Reason: Hypoglycemia Protocol Enalapril Maleate (Vasotec) 20 mg PO DAILY [facility] Last Admin: 03/19/17 09:36 Dose: 20 mg Glucagon (Glucagen Diagnostic Kit) 0 mg IM STAT PRN; Protocol PRN Reason: Hypoglycemia Protocol Hydralazine HCl (Apresoline) 75 mg PO DAILY [facility] Last Admin: 03/19/17 09:36 Dose: 75 mg Piperacillin Sod/Tazobactam Sod (Zosyn 2.25 Gm Iv Premix) 2.25 gm in 50 mls @ 100 mls/hr IVPB Q6H [facility] Last Admin: 03/19/17 22:05 Dose: 100 mls/hr Dextrose (Dextrose 5% In Water 1000 Ml) 1,000 mls @ 0 mls/hr IV .Q0M PRN; Protocol; Per Protocol PRN Reason: Hypoglycemia Protocol Last Admin: 03/18/17 16:41 Dose: 100 mls/hr Heparin Sodium/Sodium Chloride (Heparin 92924 Units/250ml 1/2 Normal Saline) 25 ,000 units in 250 mls @ 5.715 mls/hr IV .Q24H PRN; Protocol; 9 UNITS/KG/HR PRN Reason: ADJUST RATE PER PROTOCOL Last Admin: 03/19/17 03:12 Dose: 9 units/kg/hr, 5.715 mls/hr Insulin Human Regular (Novolin R) 0 unit SC ACHS [facility] PRN Reason: Protocol Last Admin: 03/19/17 22:07 Dose: Not Given Ondansetron HCl (Zofran Inj) 4 mg IVP Q6 PRN PRN Reason: Nausea/Vomiting Last Admin: 03/18/17 16:00 Dose: 4 mg Oseltamivir Phosphate (Tamiflu Susp) 30 mg PO DAILY@1800 [facility] Stop: 03/24/17 18:01 Last Admin: 03/19/17 20:26 Dose: 30 mg Pantoprazole Sodium (Protonix Ec Tab) 40 mg PO DAILY [facility] Last Admin: 03/19/17 09:36 Dose: 40 mg Vitamin B Complex/Vit C/Folic Acid (Nephro-Seth) 1 tab PO DAILY [facility] Last Admin: 03/19/17 09:36 Dose: 1 tab - Labs Labs: 03/19/17 07:25 03/19/17 13:47 PT 20.9 SECONDS (9.7-12.2) H 03/19/17 01:23 INR 1.8 03/19/17 01:23 APTT 90 SECONDS (21-34) H D 03/19/17 21:50 Assessment and Plan - Assessment and Plan (Free Text) Assessment: (1) Atrial fibrillation Assessment & Plan: Heparin drop, his rate has been controlled with a HR around the 70s. Status: Acute (2) NSTEMI (non-ST elevated myocardial infarction) Assessment & Plan: Aspirin 81mg and Heparin drip. Status: Acute (3) Elevated LFTs Assessment & Plan: Follow up Abdominal US and also GI consult. Status: Acute (4) Hyperbilirubinemia Assessment & Plan: T. Bili is 1.8, follow up direct T. Bili. Status: Acute (5) IDDM (insulin dependent diabetes mellitus) Assessment & Plan: Patient has been having hypoglyemic episodes per patient's family, will do accu checks with sliding scale. Status: Chronic (6) HTN (hypertension) Assessment & Plan: continue current medication. Status: Chronic (7) CVA, old, hemiparesis Assessment & Plan: continue reposition of patient, will need to check for pressure ulcers. PT and OT. Status: Chronic (8) Chronic kidney disease, stage V requiring chronic dialysis Assessment & Plan: Dialysis. Status: Acute (11) Prophylactic measure Assessment & Plan: Heparin drip, protonix, SCDs pallative care consult, patient is DNR/DNI. Status: Acute
--- NOTE | 2017-03-19 23:29 | CARD ---
APPROVED REPORT EKG Measurement Heart [id number] <Conclusion> Atrial fibrillation with premature ventricular or aberrantly conducted complexes Indeterminate axis Right bundle branch block T wave abnormality, consider lateral ischemia Inferior wall CT, age undetermined Abnormal ECG
--- NOTE | 2017-03-19 23:31 | CARD ---
APPROVED REPORT EKG Measurement Heart [id number] <Conclusion> Atrial fibrillation with rapid ventricular response Right bundle branch block Inferior infarct, age undetermined T wave abnormality, consider lateral ischemia Abnormal ECG
--- NOTE | 2017-03-19 23:32 | CARD ---
APPROVED REPORT EKG Measurement Heart [id number] <Conclusion> Atrial fibrillation Left axis deviation Right bundle branch block T wave abnormality, consider inferolateral ischemia Abnormal ECG
[2017-03-20] MEDS: Piperacill/Tazo 2.25gm in Dex 2.25 GM/50 ML BAG IVPB SCH ×4 (04:27→21:31)
[2017-03-20 08:09] LABS: INR 1.6; PROTHROMBIN TIME 18.2 SECONDS (9.7-12.2)
[2017-03-20 08:24] LABS: BASO % 0.9 % (0.0-2.0); EOS % 0.4 % (0.0-4.0); HEMOGLOBIN 12.5 g/dL (12.0-18.0); LYMPH # 0.7 K/uL (1.0-4.3); LYMPH % 14.9 % (20.0-40.0); MEAN CELL VOLUME 94.3 fL (80.0-94.0); MEAN CORPUSCULAR HEMOGLOBIN 31.7 pg (27.0-31.0); MEAN CORPUSCULAR HGB CONC 33.6 g/dL (33.0-37.0); MEAN PLATELET VOLUME 9.1 fL (7.2-11.7); MONO # 0.4 K/uL (0.0-0.8); NEUT # 3.5 K/uL (1.8-7.0); NEUT % 75.8 % (50.0-75.0); RBC 3.95 Mil/uL (4.40-5.90); RED CELL DISTRIBUTION WIDTH 17.4 % (11.5-14.5); WHITE BLOOD COUNT 4.6 K/uL (4.8-10.8)
[2017-03-20] MEDS: (Novolin R) Insulin Human Regular 100 units/ml vial SC SCH ×3 (08:31→18:14)
[2017-03-20 08:35] LABS: ALB/GLOB RATIO 0.9 (1.0-2.1); ALBUMIN 2.8 g/dL (3.5-5.0); BILIRUBIN,DIRECT 1.7 mg/dL (0.0-0.4); CALCIUM 8.6 mg/dl (8.6-10.4); MAGNESIUM 1.7 mg/dL (1.6-2.3)
[2017-03-20] MEDS ORDERED: Phytonadione 10 mg/ml Inj (Adult) SC STA (08:58)
[2017-03-20] MEDS: Multivitamin Vitamin B Complex (Nephro-Vite) Tab PO SCH (09:33)
[2017-03-20] MEDS: Pantoprazole 40 mg EC Tab PO SCH (09:33)
--- NOTE | 2017-03-20 13:08 | CON ---
DATE: 03/20/[address] Pena to Dr. Sarah Weston. HISTORY OF PRESENT ILLNESS: I was called for a GI consultation by the admitting MD. The patient is seen and fully examined on 03/20/2017 as requested by the admitting MD. Orders were given on 03/19/2017 by myself. This is a 72-year-old male who was admitted to the hospital with a main complaint of productive cough, congestion, episodes of hypoglycemia, abdominal pain on and off, low-grade fever as reported with mild nausea and dyspepsia on and off. No reported active bleeding. The patient denied any chills, vomiting, but loss of appetite recently. PAST MEDICAL HISTORY: Including but not limited to; 1. Hypertension. 2. Congestive heart failure with coronary artery disease. 3. CVA with contracted left side deficits. 4. End-stage renal disease, on hemodialysis. 5. Previous history of pneumonia with chronic lower back pain syndrome. 6. disease. CURRENT MEDICATIONS: Medication list was reviewed. FAMILY HISTORY: Noncontributory. ALLERGY TO MEDICATION: NONE. SOCIAL HISTORY: Denied any recent history of cigarette smoking or alcohol intake. The patient had abdominal and pelvic CAT scan as well as ultrasound of the abdomen ordered by myself indicative of ascites with questionable hepatic cirrhosis and markedly thickened bladder wall with possible cystitis with bilateral pleural effusion. Most recent lab results done today showed white blood cells low of 4.6 with normal hemoglobin and hematocrit, but thrombocytopenia of 55 with increased PT to 18.2 and PTT to 80. The patient had been anticoagulated with sodium low of 129, creatinine 2.6 with normal BUN from 33 and 3.7 with increased total bilirubin to 2 and AST elevated to 182, ALT to 84, alkaline phosphatase 250. The patient has excessive increase of troponin 1 level to 4.23 with low albumin 2.8, low total protein 5.9. Initial chest x-ray done at the time of the admission repot is seen indicative of cardiomegaly with pulmonary vascular congestion and congestive heart failure with possible pneumonia. PHYSICAL EXAMINATION: GENERAL: A 72-year-old male, appeared to be awake, alert, oriented with slow response. VITAL SIGNS: Afebrile with pulse of 86, respiratory rate 20 to 22, blood pressure of 118/72. HEENT: Showed pale dry oral mucous membrane. Nonicteric sclerae. LUNGS: Few scattered crepitation with decreased air entry at bases. HEART: Positive S1 and S2. ABDOMEN: Soft. Bowel sounds are present with mild distention. Positive for ascites. No mass or organomegaly. No rebound tenderness or guarding. RECTAL: Deferred due to the patient's cardiac and pulmonary status. EXTREMITIES: With left-sided weakness with slight lower extremity edematous changes. No clubbing or cyanosis. NEUROLOGIC: No reported new focal deficits. Peripheral pulses are present, but weak bilaterally. IMPRESSION: 1. Liver cirrhosis, most likely by radiology study results with abnormal liver function test. The possibility of viral hepatitis, by history, should be ruled in or out. 2. Abnormal liver function tests, most likely secondary to above. 3. Right-sided congestive failure, which can contribute also to the patient's abnormal liver function tests versus less likely chemical hepatitis. 4. Ascites secondary to above and/or right-sided heart failure. 5. Multiple past medical history including but not limited to hypertension, cerebrovascular accident, congestive heart failure, chronic renal failure, coronary artery disease with chronic lower back pain syndrome. 6. Pleural effusion with pneumonia by recent history. SUGGESTION: 1. Agree with your plan. 2. Alpha-fetoprotein, CEA level. 3. Full hepatitis profile. 4. Ammonia level. 5. Further recommendation to follow. It has to be mentioned that the patient is seen by the medical economics consultant as well as the nephrology retirement consultant and no aggressive GI workup in the meantime until the patient is more stable clinically. Further recommendation to follow. Thank you for letting me participate in your patient's case management. Rocio Pena MD
--- NOTE | 2017-03-20 17:29 | CP.PCM.PN ---
Subjective - Date & Time of Evaluation Date of Evaluation: 03/20/17 Time of Evaluation: 17:26 - Subjective Subjective: Follow up Nephrology Consultation Note Assessment: Stable Influenza B infection, NSTEMI Diabetic chronic Kidney Disease (E11.22) Hypertensive Chronic Kidney Disease (I12.0) End stage renal disease (N18.6) dependence on hemodialysis (Z99.2) (MWF) via AVF Anemia (D64.9), Hyperphosphatemia (E83.39), Secondary Hyperparathyroidism (E21.1 ), HTN (I12.0) hx of CHF, CVA, possible cirrhosis, thickened urinary bladder wall Plan: No acute need for dialysis today. Will plan for dialysis wednesday. Continue with Nephrovite 1 tab/day. Not onn GUDELIA as, last Hb 12.5 Continue with phos binders, last phos level 4.2 BP control with meds as ordered. Patient on RAAS marine as enalapril Glycemic control, Dialysis consistent diet Further work up/management as per primary team Dose meds/antibiotics (if needed) for ESRD status. Avoid fleets enema/magnesium based laxatives. cardiology and ID following Thanks for allowing me to participate in care of your patient. Will follow patient with you. Please call if any Qs Dr Agustin Mooney Office: [phone] Subjective: Noted events overnight. Patients sleeping. no new complaints as per family bedside. Physical Examination: General Appearance: Comfortable, in no acute respiratory distress Vitals reviewed and noted as below Head; Atraumatic, normocephalic Neck; supple no lymphadenopathy, no thyromegaly or bruit Lungs: Normal respiratory rate/effort. Breath sounds bilateral equal and clear except few left basal crackle Heart: Normal rate. s1s2 normal. No rub or gallop. Extremities: no edema. No varicose veins Neurological: Patient is sleeping. known to have left hemiparesis Skin: Warm and dry. Normal turgor. No rash. Palpitation: Normal elasticity for age Abdomen: Abdomen is soft. Bowel sounds +. There is no abdominal tenderness, no guarding/rigidity or organomegaly Psych: deferred MSK: no joint tenderness or swelling. Digits and nails normal, no deformity : kidney or bladder not palpable Access: AVF Labs/imaging reviewed. Past medical history, past surgical history, family history, social history, allergy reviewed and noted as below Family Hx: no hx of CKD. Non contributory Objective - Vital Signs/Intake and Output Vital Signs (last 24 hours): Temp Pulse Resp BP Pulse Ox 98.4 F 78 20 150/81 97 03/20/17 16:00 03/20/17 16:00 03/20/17 16:00 03/20/17 16:00 03/20/17 16:00 Intake and Output: 03/20/17 03/20/17 06:59 18:59 Intake Total 94 90 Balance 94 90 - Medications Medications: Current Medications Aspirin (Aspirin Chewable) 81 mg PO DAILY [facility] Last Admin: 03/20/17 09:32 Dose: 81 mg Carvedilol (Coreg) 12.5 mg PO Q12 [facility] Last Admin: 03/20/17 09:32 Dose: 12.5 mg Dextrose (Dextrose 50% Inj) 0 ml IV STAT PRN; Protocol PRN Reason: Hypoglycemia Protocol Last Admin: 03/18/17 16:43 Dose: 25 ml Dextrose (Glutose 15) 0 gm PO ONCE PRN; Protocol PRN Reason: Hypoglycemia Protocol Enalapril Maleate (Vasotec) 20 mg PO DAILY [facility] Last Admin: 03/20/17 09:33 Dose: 20 mg Glucagon (Glucagen Diagnostic Kit) 0 mg IM STAT PRN; Protocol PRN Reason: Hypoglycemia Protocol Hydralazine HCl (Apresoline) 75 mg PO DAILY [facility] Last Admin: 03/20/17 09:32 Dose: 75 mg Piperacillin Sod/Tazobactam Sod (Zosyn 2.25 Gm Iv Premix) 2.25 gm in 50 mls @ 100 mls/hr IVPB Q6H [facility] Last Admin: 03/20/17 16:58 Dose: 100 mls/hr Dextrose (Dextrose 5% In Water 1000 Ml) 1,000 mls @ 0 mls/hr IV .Q0M PRN; Protocol; Per Protocol PRN Reason: Hypoglycemia Protocol Last Admin: 03/18/17 16:41 Dose: 100 mls/hr Heparin Sodium/Sodium Chloride (Heparin 34567 Units/250ml 1/2 Normal Saline) 25 ,000 units in 250 mls @ 5.715 mls/hr IV .Q24H PRN; Protocol; 9 UNITS/KG/HR PRN Reason: ADJUST RATE PER PROTOCOL Last Admin: 03/19/17 03:12 Dose: 9 units/kg/hr, 5.715 mls/hr Insulin Human Regular (Novolin R) 0 unit SC ACHS [facility] PRN Reason: Protocol Last Admin: 03/20/17 13:03 Dose: Not Given Ondansetron HCl (Zofran Inj) 4 mg IVP Q6 PRN PRN Reason: Nausea/Vomiting Last Admin: 03/18/17 16:00 Dose: 4 mg Oseltamivir Phosphate (Tamiflu Susp) 30 mg PO DAILY@1800 [facility] Stop: 03/24/17 18:01 Last Admin: 03/19/17 20:26 Dose: 30 mg Pantoprazole Sodium (Protonix Ec Tab) 40 mg PO DAILY [facility] Last Admin: 03/20/17 09:33 Dose: 40 mg Vitamin B Complex/Vit C/Folic Acid (Nephro-Seth) 1 tab PO DAILY [facility] Last Admin: 03/20/17 09:33 Dose: 1 tab - Labs Labs: 03/20/17 07:51 03/20/17 07:51 PT 18.2 SECONDS (9.7-12.2) H 03/20/17 07:51 INR 1.6 03/20/17 07:51 APTT 80 SECONDS (21-34) H D 03/20/17 07:51
[2017-03-20] MEDS: Oseltamivir 6 MG/ML PO SCH (19:00)
--- NOTE | 2017-03-20 21:23 | CP.PCM.PN ---
Subjective - Date & Time of Evaluation Date of Evaluation: 03/20/17 Time of Evaluation: 16:10 - Subjective Subjective: Patient seen and evaluated Non verbal No new cardiac events noted A Fib CAD s/p Non STEMI CKD Dementia Patient DNR/DNI Objective - Vital Signs/Intake and Output Vital Signs (last 24 hours): Temp Pulse Resp BP Pulse Ox 98.4 F 74 20 150/81 97 03/20/17 16:00 03/20/17 19:10 03/20/17 16:00 03/20/17 16:00 03/20/17 16:00 Intake and Output: 03/20/17 03/21/17 18:59 06:59 Intake Total 90 Balance 90 - Medications Medications: Current Medications Aspirin (Aspirin Chewable) 81 mg PO DAILY [facility] Last Admin: 03/20/17 09:32 Dose: 81 mg Carvedilol (Coreg) 12.5 mg PO Q12 [facility] Last Admin: 03/20/17 09:32 Dose: 12.5 mg Dextrose (Dextrose 50% Inj) 0 ml IV STAT PRN; Protocol PRN Reason: Hypoglycemia Protocol Last Admin: 03/18/17 16:43 Dose: 25 ml Dextrose (Glutose 15) 0 gm PO ONCE PRN; Protocol PRN Reason: Hypoglycemia Protocol Enalapril Maleate (Vasotec) 20 mg PO DAILY [facility] Last Admin: 03/20/17 09:33 Dose: 20 mg Glucagon (Glucagen Diagnostic Kit) 0 mg IM STAT PRN; Protocol PRN Reason: Hypoglycemia Protocol Hydralazine HCl (Apresoline) 75 mg PO DAILY [facility] Last Admin: 03/20/17 09:32 Dose: 75 mg Piperacillin Sod/Tazobactam Sod (Zosyn 2.25 Gm Iv Premix) 2.25 gm in 50 mls @ 100 mls/hr IVPB Q6H [facility] Last Admin: 03/20/17 16:58 Dose: 100 mls/hr Dextrose (Dextrose 5% In Water 1000 Ml) 1,000 mls @ 0 mls/hr IV .Q0M PRN; Protocol; Per Protocol PRN Reason: Hypoglycemia Protocol Last Admin: 03/18/17 16:41 Dose: 100 mls/hr Heparin Sodium/Sodium Chloride (Heparin 37775 Units/250ml 1/2 Normal Saline) 25 ,000 units in 250 mls @ 5.715 mls/hr IV .Q24H PRN; Protocol; 9 UNITS/KG/HR PRN Reason: ADJUST RATE PER PROTOCOL Last Admin: 03/19/17 03:12 Dose: 9 units/kg/hr, 5.715 mls/hr Insulin Human Regular (Novolin R) 0 unit SC ACHS [facility] PRN Reason: Protocol Last Admin: 03/20/17 18:14 Dose: Not Given Ondansetron HCl (Zofran Inj) 4 mg IVP Q6 PRN PRN Reason: Nausea/Vomiting Last Admin: 03/18/17 16:00 Dose: 4 mg Oseltamivir Phosphate (Tamiflu Susp) 30 mg PO DAILY@1800 [facility] Stop: 03/24/17 18:01 Last Admin: 03/20/17 19:00 Dose: 30 mg Pantoprazole Sodium (Protonix Ec Tab) 40 mg PO DAILY [facility] Last Admin: 03/20/17 09:33 Dose: 40 mg Vitamin B Complex/Vit C/Folic Acid (Nephro-Seth) 1 tab PO DAILY [facility] Last Admin: 03/20/17 09:33 Dose: 1 tab - Labs Labs: 03/20/17 07:51 03/20/17 07:51 PT 18.2 SECONDS (9.7-12.2) H 03/20/17 07:51 INR 1.6 03/20/17 07:51 APTT 80 SECONDS (21-34) H D 03/20/17 07:51
[2017-03-20] MEDS: Dextrose 50% SYRINGE Inj (50 ml) IV PRN (21:57)
[2017-03-20] MEDS ORDERED: Dextrose 50% VIAL Inj (50 ml) IV ONE (21:57)
[2017-03-21] MEDS: Piperacill/Tazo 2.25gm in Dex 2.25 GM/50 ML BAG IVPB SCH ×4 (03:42→22:40)
[2017-03-21] MEDS: (Novolin R) Insulin Human Regular 100 units/ml vial SC SCH ×4 (08:24→22:32)
[2017-03-21 09:09] LABS: BASO # 0.1 K/uL (0.0-0.2); BASO % 1.1 % (0.0-2.0); EOS % 0.6 % (0.0-4.0); LYMPH % 22.7 % (20.0-40.0); MEAN CELL VOLUME 93.8 fL (80.0-94.0); MEAN CORPUSCULAR HEMOGLOBIN 32.4 pg (27.0-31.0); MEAN CORPUSCULAR HGB CONC 34.6 g/dL (33.0-37.0); MEAN PLATELET VOLUME 9.3 fL (7.2-11.7); MONO # 0.6 K/uL (0.0-0.8); MONO % 12.6 % (0.0-10.0); NEUT # 2.8 K/uL (1.8-7.0); NRBC % 0.3 % (0.0-2.0); RBC 3.39 Mil/uL (4.40-5.90); RED CELL DISTRIBUTION WIDTH 17.1 % (11.5-14.5); WHITE BLOOD COUNT 4.5 K/uL (4.8-10.8)
[2017-03-21 09:49] LABS: ALB/GLOB RATIO 0.9 (1.0-2.1); ALBUMIN 2.6 g/dL (3.5-5.0); CALCIUM 8.1 mg/dl (8.6-10.4)
[2017-03-21] MEDS: Pantoprazole 40 mg EC Tab PO SCH (11:09)
[2017-03-21] MEDS ORDERED: Heparin25000 units/250ml 1/2NS 25,000 UNITS/250 ML BAG IV PRN ×2 (11:09→11:15)
[2017-03-21] MEDS: Multivitamin Vitamin B Complex (Nephro-Vite) Tab PO SCH (11:10)
--- NOTE | 2017-03-21 14:09 | PN ---
DATE: LOCATION: [facility]. SUBJECTIVE: This 72-year-old male is seen in rounds with medical staff in the floor without significant clinical changes, but intermittent period of mild confusion and agitation; however, the patient appears to be for me awake at the time of my physical examination. It has to be mentioned that the patient is worked up for possible pulmonary TB as reported to me this morning. No reported active bleeding, chest pain, palpitations, but mild abdominal discomfort on and off with less oral intake. Today's lab results showed blood glucose level elevated to 122. Rest of the blood workup are still pending. Patient had yesterday low white blood cells of 4.6 with normal hemoglobin and hematocrit, but thrombocytopenia of 55 with increased PT and PTT, on heparin with low sodium with reported increased creatinine 2.6, increased total bilirubin to 2 with elevated AST and ALT as well as alkaline phosphatase. Albumin reported is 2.8 with low total protein 5.9 with increased CEA to 3.2. PHYSICAL EXAMINATION GENERAL: A 72-year-old male. VITAL SIGNS: Afebrile with pulse of 70, respiratory rate 20 to 22, reported blood pressure of 104/62. HEENT: Showed pale, dry oral mucous membrane. Nonicteric sclerae. LUNGS: Few scattered crepitation with decreased air entry at bases with a few rhonchi. HEART: Positive S1 and S2. ABDOMEN: Soft with mild generalized tenderness with ascites. No rebound tenderness or guarding. No mass or organomegaly. EXTREMITIES: With mild lower extremity edematous changes with evidence of mild wasting syndrome. No clubbing or cyanosis. NEUROLOGIC: No reported neurological deficits, sensory or motor. IMPRESSION: 1. Hepatic cirrhosis, diagnosed by radiology study results with abnormal liver function test that could be secondary again to viral hepatitis versus right-sided heart failure. 2. Re-exacerbation of peptic ulcer disease. 3. secondary to above. 4. Evidence of portal hypertension with ascites. 5. Right-sided heart failure. 6. Pneumonia by recent history. 7. Past medical history including but not limited to hypertension;cerebrovascular accident; coronary artery disease with chronic renal failure, on hemodialysis. SUGGESTIONS: 1. Agree with your plan. 2. Again obtain pneumonia level, is still pending. 3. Guaiac of the stool daily x3. 4. No aggressive GI workup in the meantime until the patient is more stable clinically. Further recommendation to follow. It is to be mentioned that if the ammonia level is elevated, then neomycin 500 mg p.o. q.6 hours. Further recommendation to follow. Rocio Pena MD
--- NOTE | 2017-03-21 16:15 | CP.PCM.PN ---
Subjective - Date & Time of Evaluation Date of Evaluation: 03/21/17 Time of Evaluation: 16:13 - Subjective Subjective: Follow up Nephrology Consultation Note Assessment: Stable Hyponatremia likely due to hypotnic fluid as D5W Influenza B infection, NSTEMI Diabetic chronic Kidney Disease (E11.22) Hypertensive Chronic Kidney Disease (I12.0) End stage renal disease (N18.6) dependence on hemodialysis (Z99.2) (MWF) via AVF Anemia (D64.9), Hyperphosphatemia (E83.39), Secondary Hyperparathyroidism (E21.1 ), HTN (I12.0) hx of CHF, CVA, possible cirrhosis, thickened urinary bladder wall Plan: No acute need for dialysis today. Will plan for dialysis wednesday. Continue with Nephrovite 1 tab/day. Not onn GUDELIA as, last Hb 11 Continue with phos binders, last phos level 4.2 BP control with meds as ordered. Patient on RAAS marine as enalapril Glycemic control, Dialysis consistent diet Further work up/management as per primary team Dose meds/antibiotics (if needed) for ESRD status. Avoid fleets enema/magnesium based laxatives. cardiology and ID following change IVF to D5W with NS as he is not eating much. avoid hypotonic fluids Thanks for allowing me to participate in care of your patient. Will follow patient with you. Please call if any Qs Dr Agustin Mooney Office: [phone] Subjective: Noted events overnight. Patients not much communicating. no new complaints as per family bedside. Physical Examination: General Appearance: Comfortable, in no acute respiratory distress Vitals reviewed and noted as below Head; Atraumatic, normocephalic Neck; supple no lymphadenopathy, no thyromegaly or bruit Lungs: Normal respiratory rate/effort. Breath sounds bilateral equal and clear except few left basal crackle Heart: Normal rate. s1s2 normal. No rub or gallop. Extremities: no edema. No varicose veins Neurological: Patient is sleepy. known to have left hemiparesis Skin: Warm and dry. Normal turgor. No rash. Palpitation: Normal elasticity for age Abdomen: Abdomen is soft. Bowel sounds +. There is no abdominal tenderness, no guarding/rigidity or organomegaly Psych: deferred. he is irritable. MSK: no joint tenderness or swelling. Digits and nails normal, no deformity : kidney or bladder not palpable Access: AVF Labs/imaging reviewed. Past medical history, past surgical history, family history, social history, allergy reviewed and noted as below Family Hx: no hx of CKD. Non contributory Objective - Vital Signs/Intake and Output Vital Signs (last 24 hours): Temp Pulse Resp BP Pulse Ox 97.9 F 57 L 20 109/66 97 03/21/17 08:00 03/21/17 11:11 03/21/17 08:00 03/21/17 11:11 03/21/17 08:00 Intake and Output: 03/21/17 03/21/17 06:59 18:59 Intake Total 220 Balance 220 - Medications Medications: Current Medications Aspirin (Aspirin Chewable) 81 mg PO DAILY [facility] Last Admin: 03/21/17 11:09 Dose: 81 mg Carvedilol (Coreg) 12.5 mg PO Q12 [facility] Last Admin: 03/21/17 11:10 Dose: Not Given Enalapril Maleate (Vasotec) 20 mg PO DAILY [facility] Last Admin: 03/21/17 11:10 Dose: Not Given Hydralazine HCl (Apresoline) 75 mg PO DAILY [facility] Last Admin: 03/21/17 11:10 Dose: Not Given Piperacillin Sod/Tazobactam Sod (Zosyn 2.25 Gm Iv Premix) 2.25 gm in 50 mls @ 100 mls/hr IVPB Q6H [facility] Last Admin: 03/21/17 10:36 Dose: 100 mls/hr Heparin Sodium/Sodium Chloride (Heparin 10804 Units/250ml 1/2 Normal Saline) 25 ,000 units in 250 mls @ 3.991 mls/hr IV .Q24H PRN; Protocol; 6.95 UNITS/KG/HR PRN Reason: ADJUST RATE PER PROTOCOL Last Admin: 03/21/17 11:20 Dose: 6.95 units/kg/hr, 3.991 mls/hr Dextrose/Sodium Chloride (Dextrose 5%/0.9% Ns 1000 Ml) 1,000 mls @ 30 mls/hr IV .Q24H [facility] Stop: 03/23/17 16:16 Insulin Human Regular (Novolin R) 0 unit SC ACHS [facility] PRN Reason: Protocol Last Admin: 03/21/17 13:00 Dose: Not Given Ondansetron HCl (Zofran Inj) 4 mg IVP Q6 PRN PRN Reason: Nausea/Vomiting Last Admin: 03/18/17 16:00 Dose: 4 mg Oseltamivir Phosphate (Tamiflu Susp) 30 mg PO DAILY@1800 [facility] Stop: 03/24/17 18:01 Last Admin: 03/20/17 19:00 Dose: 30 mg Pantoprazole Sodium (Protonix Ec Tab) 40 mg PO DAILY [facility] Last Admin: 03/21/17 11:09 Dose: 40 mg Vitamin B Complex/Vit C/Folic Acid (Nephro-Seth) 1 tab PO DAILY [facility] Last Admin: 03/21/17 11:10 Dose: 1 tab - Labs Labs: 03/21/17 08:50 03/21/17 08:50 PT 18.2 SECONDS (9.7-12.2) H 03/20/17 07:51 INR 1.6 03/20/17 07:51 APTT 109 SECONDS (21-34) H* D 03/21/17 08:50
--- NOTE | 2017-03-21 16:56 | CP.PCM.PN ---
Subjective - Date & Time of Evaluation Date of Evaluation: 03/21/17 Time of Evaluation: 08:00 - Subjective Subjective: weak lethargic afebrile Objective - Vital Signs/Intake and Output Vital Signs (last 24 hours): Temp Pulse Resp BP Pulse Ox 97.9 F 57 L 20 109/66 97 03/21/17 08:00 03/21/17 11:11 03/21/17 08:00 03/21/17 11:11 03/21/17 08:00 Intake and Output: 03/21/17 03/21/17 06:59 18:59 Intake Total 220 Balance 220 - Medications Medications: Current Medications Aspirin (Aspirin Chewable) 81 mg PO DAILY [facility] Last Admin: 03/21/17 11:09 Dose: 81 mg Carvedilol (Coreg) 12.5 mg PO Q12 [facility] Last Admin: 03/21/17 11:10 Dose: Not Given Enalapril Maleate (Vasotec) 20 mg PO DAILY [facility] Last Admin: 03/21/17 11:10 Dose: Not Given Hydralazine HCl (Apresoline) 75 mg PO DAILY [facility] Last Admin: 03/21/17 11:10 Dose: Not Given Piperacillin Sod/Tazobactam Sod (Zosyn 2.25 Gm Iv Premix) 2.25 gm in 50 mls @ 100 mls/hr IVPB Q6H [facility] Last Admin: 03/21/17 10:36 Dose: 100 mls/hr Heparin Sodium/Sodium Chloride (Heparin 70876 Units/250ml 1/2 Normal Saline) 25 ,000 units in 250 mls @ 3.991 mls/hr IV .Q24H PRN; Protocol; 6.95 UNITS/KG/HR PRN Reason: ADJUST RATE PER PROTOCOL Last Admin: 03/21/17 11:20 Dose: 6.95 units/kg/hr, 3.991 mls/hr Dextrose/Sodium Chloride (Dextrose 5%/0.9% Ns 1000 Ml) 1,000 mls @ 30 mls/hr IV .Q24H [facility] Stop: 03/23/17 16:16 Insulin Human Regular (Novolin R) 0 unit SC ACHS [facility] PRN Reason: Protocol Last Admin: 03/21/17 13:00 Dose: Not Given Ondansetron HCl (Zofran Inj) 4 mg IVP Q6 PRN PRN Reason: Nausea/Vomiting Last Admin: 03/18/17 16:00 Dose: 4 mg Oseltamivir Phosphate (Tamiflu Susp) 30 mg PO DAILY@1800 [facility] Stop: 03/24/17 18:01 Last Admin: 03/20/17 19:00 Dose: 30 mg Pantoprazole Sodium (Protonix Ec Tab) 40 mg PO DAILY [facility] Last Admin: 03/21/17 11:09 Dose: 40 mg Vitamin B Complex/Vit C/Folic Acid (Nephro-Seth) 1 tab PO DAILY [facility] Last Admin: 03/21/17 11:10 Dose: 1 tab - Labs Labs: 03/21/17 08:50 03/21/17 08:50 PT 18.2 SECONDS (9.7-12.2) H 03/20/17 07:51 INR 1.6 03/20/17 07:51 APTT 109 SECONDS (21-34) H* D 03/21/17 08:50 - Constitutional Appears: Non-toxic, Cachectic, Chronically Ill - Head Exam Head Exam: ATRAUMATIC, NORMAL INSPECTION, NORMOCEPHALIC - Eye Exam Eye Exam: PERRL. absent: Scleral icterus - ENT Exam ENT Exam: Mucous Membranes Dry - Neck Exam Neck Exam: absent: Lymphadenopathy - Respiratory Exam Respiratory Exam: Decreased Breath Sounds - Cardiovascular Exam Cardiovascular Exam: REGULAR RHYTHM - GI/Abdominal Exam GI & Abdominal Exam: Distended, Soft Assessment and Plan (1) Atrial fibrillation Status: Acute (2) CKD (chronic kidney disease) requiring chronic dialysis Status: Acute (3) Elevated LFTs Status: Acute (4) Hyperbilirubinemia Status: Acute (5) Hyperlipidemia Status: Acute (6) Influenza Status: Acute (7) NSTEMI (non-ST elevated myocardial infarction) Status: Acute (8) Pneumonia Status: Acute (9) Syncope Status: Acute (10) Atelectasis of left lung Status: Acute (11) Chronic kidney disease, stage V requiring chronic dialysis Status: Acute
[2017-03-21] MEDS: Dextrose 5%/0.9% NS 1,000 ML IV SCH (17:15)
[2017-03-21] MEDS: Oseltamivir 6 MG/ML PO SCH (19:00)
--- NOTE | 2017-03-21 21:46 | CP.PCM.PN ---
Subjective - Date & Time of Evaluation Date of Evaluation: 03/21/17 Time of Evaluation: 16:10 - Subjective Subjective: Patient seen and evaluated Non verbal No new cardiac events noted A Fib CAD s/p Non STEMI CKD Dementia Patient DNR/DNI Objective - Vital Signs/Intake and Output Vital Signs (last 24 hours): Temp Pulse Resp BP Pulse Ox 97.2 F L 75 20 100/60 95 03/21/17 16:00 03/21/17 16:00 03/21/17 16:00 03/21/17 16:00 03/21/17 16:00 Intake and Output: 03/21/17 03/22/17 18:59 06:59 Intake Total 220 Balance 220 - Medications Medications: Current Medications Aspirin (Aspirin Chewable) 81 mg PO DAILY [facility] Last Admin: 03/21/17 11:09 Dose: 81 mg Carvedilol (Coreg) 12.5 mg PO Q12 [facility] Last Admin: 03/21/17 11:10 Dose: Not Given Enalapril Maleate (Vasotec) 20 mg PO DAILY [facility] Last Admin: 03/21/17 11:10 Dose: Not Given Hydralazine HCl (Apresoline) 75 mg PO DAILY [facility] Last Admin: 03/21/17 11:10 Dose: Not Given Piperacillin Sod/Tazobactam Sod (Zosyn 2.25 Gm Iv Premix) 2.25 gm in 50 mls @ 100 mls/hr IVPB Q6H [facility] Last Admin: 03/21/17 17:00 Dose: 100 mls/hr Heparin Sodium/Sodium Chloride (Heparin 18031 Units/250ml 1/2 Normal Saline) 25 ,000 units in 250 mls @ 3.991 mls/hr IV .Q24H PRN; Protocol; 6.95 UNITS/KG/HR PRN Reason: ADJUST RATE PER PROTOCOL Last Admin: 03/21/17 11:20 Dose: 6.95 units/kg/hr, 3.991 mls/hr Dextrose/Sodium Chloride (Dextrose 5%/0.9% Ns 1000 Ml) 1,000 mls @ 30 mls/hr IV .Q24H [facility] Stop: 03/23/17 16:16 Last Admin: 03/21/17 17:15 Dose: 30 mls/hr Insulin Human Regular (Novolin R) 0 unit SC ACHS [facility] PRN Reason: Protocol Last Admin: 03/21/17 17:15 Dose: Not Given Ondansetron HCl (Zofran Inj) 4 mg IVP Q6 PRN PRN Reason: Nausea/Vomiting Last Admin: 03/18/17 16:00 Dose: 4 mg Oseltamivir Phosphate (Tamiflu Susp) 30 mg PO DAILY@1800 [facility] Stop: 03/24/17 18:01 Last Admin: 03/21/17 19:00 Dose: 30 mg Pantoprazole Sodium (Protonix Ec Tab) 40 mg PO DAILY [facility] Last Admin: 03/21/17 11:09 Dose: 40 mg Vitamin B Complex/Vit C/Folic Acid (Nephro-Seth) 1 tab PO DAILY [facility] Last Admin: 03/21/17 11:10 Dose: 1 tab - Labs Labs: 03/21/17 08:50 03/21/17 08:50 PT 18.2 SECONDS (9.7-12.2) H 03/20/17 07:51 INR 1.6 03/20/17 07:51 APTT 70 SECONDS (21-34) H D 03/21/17 21:00
[2017-03-22] MEDS: Piperacill/Tazo 2.25gm in Dex 2.25 GM/50 ML BAG IVPB SCH ×4 (03:13→21:10)
[2017-03-22] MEDS ORDERED: Dextrose 50% SYRINGE Inj (50 ml) IV ONE (06:30)
[2017-03-22] MEDS: (Novolin R) Insulin Human Regular 100 units/ml vial SC SCH ×4 (07:54→21:53)
--- NOTE | 2017-03-22 08:18 | CP.PCM.PN ---
Subjective - Date & Time of Evaluation Date of Evaluation: 03/22/17 Time of Evaluation: 10:00 - Subjective Subjective: Dr. Weston note: Patient is seen and examined in room. Patient reports some slight chest pain associated with coughing, nursing staff reports some hypotension with BP in the upper 80s systolic. Also nursing staff reports family members are complaining he is having greenish diarrhea that started yesterday. Objective - Vital Signs/Intake and Output Vital Signs (last 24 hours): Temp Pulse Resp BP Pulse Ox 98.4 F 73 20 92/59 L 94 L 03/21/17 23:25 03/22/17 03:45 03/21/17 23:25 03/21/17 23:25 03/21/17 23:25 Intake and Output: 03/22/17 03/22/17 06:59 18:59 Intake Total 432 Balance 432 - Medications Medications: Current Medications Aspirin (Aspirin Chewable) 81 mg PO DAILY [facility] Last Admin: 03/21/17 11:09 Dose: 81 mg Carvedilol (Coreg) 12.5 mg PO Q12 [facility] Last Admin: 03/21/17 22:40 Dose: 12.5 mg Enalapril Maleate (Vasotec) 20 mg PO DAILY [facility] Last Admin: 03/21/17 11:10 Dose: Not Given Hydralazine HCl (Apresoline) 75 mg PO DAILY [facility] Last Admin: 03/21/17 11:10 Dose: Not Given Piperacillin Sod/Tazobactam Sod (Zosyn 2.25 Gm Iv Premix) 2.25 gm in 50 mls @ 100 mls/hr IVPB Q6H [facility] Last Admin: 03/22/17 03:13 Dose: 100 mls/hr Heparin Sodium/Sodium Chloride (Heparin 16198 Units/250ml 1/2 Normal Saline) 25 ,000 units in 250 mls @ 3.991 mls/hr IV .Q24H PRN; Protocol; 6.95 UNITS/KG/HR PRN Reason: ADJUST RATE PER PROTOCOL Last Admin: 03/21/17 11:20 Dose: 6.95 units/kg/hr, 3.991 mls/hr Dextrose/Sodium Chloride (Dextrose 5%/0.9% Ns 1000 Ml) 1,000 mls @ 30 mls/hr IV .Q24H [facility] Stop: 03/23/17 16:16 Last Admin: 03/21/17 17:15 Dose: 30 mls/hr Insulin Human Regular (Novolin R) 0 unit SC ACHS [facility] PRN Reason: Protocol Last Admin: 03/22/17 07:54 Dose: Not Given Ondansetron HCl (Zofran Inj) 4 mg IVP Q6 PRN PRN Reason: Nausea/Vomiting Last Admin: 03/18/17 16:00 Dose: 4 mg Oseltamivir Phosphate (Tamiflu Susp) 30 mg PO DAILY@1800 [facility] Stop: 03/24/17 18:01 Last Admin: 03/21/17 19:00 Dose: 30 mg Pantoprazole Sodium (Protonix Ec Tab) 40 mg PO DAILY [facility] Last Admin: 03/21/17 11:09 Dose: 40 mg Vitamin B Complex/Vit C/Folic Acid (Nephro-Seth) 1 tab PO DAILY [facility] Last Admin: 03/21/17 11:10 Dose: 1 tab - Labs Labs: 03/21/17 08:50 03/21/17 08:50 PT 18.2 SECONDS (9.7-12.2) H 03/20/17 07:51 INR 1.6 03/20/17 07:51 APTT 70 SECONDS (21-34) H D 03/21/17 21:00 - Constitutional Appears: Non-toxic, No Acute Distress, Cachectic, Chronically Ill - Eye Exam Eye Exam: Normal appearance - Respiratory Exam Respiratory Exam: Clear to Ausculation Bilateral. absent: Rales, Rhonchi, Wheezes Additional comments: chest wall tenderness - Cardiovascular Exam Cardiovascular Exam: REGULAR RHYTHM, RRR, +S1, +S2. absent: Gallop, Rubs - Extremities Exam Extremities Exam: Normal Inspection. absent: Pedal Edema - Neurological Exam Neurological Exam: Awake. absent: Oriented x3 - Skin Skin Exam: Warm Assessment and Plan - Assessment and Plan (Free Text) Assessment: (1) Pneumonia Assessment & Plan: 03/22:Sputum culture negative. Day 4 of IV Zosyn, continue, patient is better. Need to follow up blood cultures, day 2 of IV Zosyn, follow up recs from ID consult Dr. Kemp. Status: Acute (2) Influenza Assessment & Plan: 03/22: Continue with isolation, day 4 of Tamiflu Day 2 of Tamiflu, droplet isolation. Status: Acute (3) Atrial fibrillation Assessment & Plan: 03/22: Rate well controlled. continue with current medication, will consider oral anticoaguation upon discharge. Heparin drop, his rate has been controlled with a HR around the 70s. Status: Acute (4) NSTEMI (non-ST elevated myocardial infarction) Assessment & Plan: 03/22: Follow up reccs by Dr. Thomas. Trop is up to over 4, will follow up recs, Aspirin 81mg and Heparin drip. Status: Acute (5) Elevated LFTs Assessment & Plan: Follow up Abdominal US and also GI consult. Status: Acute (6) Hyperbilirubinemia Assessment & Plan: T. Bili is 1.8, follow up direct T. Bili. Status: Acute (7) IDDM (insulin dependent diabetes mellitus) Assessment & Plan: Patient has been having hypoglyemic episodes per patient's family, will do accu checks with sliding scale. Status: Chronic (8) HTN (hypertension) Assessment & Plan: 03/22: Hold medication due to low BP continue current medication. Status: Chronic (9) CVA, old, hemiparesis Assessment & Plan: continue reposition of patient, will need to check for pressure ulcers. PT and OT. Status: Chronic (10) Chronic kidney disease, stage V requiring chronic dialysis Assessment & Plan: Dialysis. Status: Acute (11) Prophylactic measure Assessment & Plan: Heparin drip, protonix, SCDs pallative care consult, patient has agreed to DNR/DNI. Status: Acute - Assessment and Plan (Free Text) Assessment: Spoke with family concerning possible fdc or home health. They were in favor of home health at this time. May consider discharge home with home health aid. Will need to discuss this with the patient's who is the patient's primary healthcare network pricing consultant.
[2017-03-22 09:10] LABS: INR 1.5; PROTHROMBIN TIME 16.9 SECONDS (9.7-12.2)
[2017-03-22 09:17] LABS: ALBUMIN 2.6 g/dL (3.5-5.0); CALCIUM 7.9 mg/dl (8.6-10.4)
[2017-03-22 09:34] LABS: ALB/GLOB RATIO 0.9 (1.0-2.1)
[2017-03-22] MEDS: Pantoprazole 40 mg EC Tab PO SCH (11:06)
[2017-03-22] MEDS: Multivitamin Vitamin B Complex (Nephro-Vite) Tab PO SCH (11:07)
--- NOTE | 2017-03-22 11:31 | PN ---
DATE: 03/21/2017 Patient is complaining of weakness, fatigue. Patient to get bedrest, supportive care, bronchodilators. Sarah Weston MD
--- NOTE | 2017-03-22 11:50 | CP.PCM.PN ---
Objective - Vital Signs/Intake and Output Vital Signs (last 24 hours): Temp Pulse Resp BP Pulse Ox 98.4 F 73 20 92/63 L 94 L 03/21/17 23:25 03/22/17 03:45 03/21/17 23:25 03/22/17 11:06 03/21/17 23:25 Intake and Output: 03/22/17 03/22/17 06:59 18:59 Intake Total 432 Balance 432 - Medications Medications: Current Medications Aspirin (Aspirin Chewable) 81 mg PO DAILY [facility] Last Admin: 03/22/17 11:06 Dose: 81 mg Carvedilol (Coreg) 12.5 mg PO Q12 [facility] Last Admin: 03/22/17 11:06 Dose: Not Given Hydralazine HCl (Apresoline) 75 mg PO DAILY [facility] Last Admin: 03/22/17 11:06 Dose: Not Given Piperacillin Sod/Tazobactam Sod (Zosyn 2.25 Gm Iv Premix) 2.25 gm in 50 mls @ 100 mls/hr IVPB Q6H [facility] Last Admin: 03/22/17 11:05 Dose: 100 mls/hr Heparin Sodium/Sodium Chloride (Heparin 23440 Units/250ml 1/2 Normal Saline) 25 ,000 units in 250 mls @ 3.991 mls/hr IV .Q24H PRN; Protocol; 6.95 UNITS/KG/HR PRN Reason: ADJUST RATE PER PROTOCOL Last Admin: 03/21/17 11:20 Dose: 6.95 units/kg/hr, 3.991 mls/hr Dextrose/Sodium Chloride (Dextrose 5%/0.9% Ns 1000 Ml) 1,000 mls @ 30 mls/hr IV .Q24H [facility] Stop: 03/23/17 16:16 Last Admin: 03/21/17 17:15 Dose: 30 mls/hr Insulin Human Regular (Novolin R) 0 unit SC ACHS [facility] PRN Reason: Protocol Last Admin: 03/22/17 07:54 Dose: Not Given Ondansetron HCl (Zofran Inj) 4 mg IVP Q6 PRN PRN Reason: Nausea/Vomiting Last Admin: 03/18/17 16:00 Dose: 4 mg Oseltamivir Phosphate (Tamiflu Susp) 30 mg PO DAILY@1800 [facility] Stop: 03/24/17 18:01 Last Admin: 03/21/17 19:00 Dose: 30 mg Pantoprazole Sodium (Protonix Ec Tab) 40 mg PO DAILY [facility] Last Admin: 03/22/17 11:06 Dose: 40 mg Tolvaptan (Samsca) 15 mg PO ONCE ONE Stop: 03/22/17 12:01 Vitamin B Complex/Vit C/Folic Acid (Nephro-Seth) 1 tab PO DAILY [facility] Last Admin: 03/22/17 11:07 Dose: 1 tab - Labs Labs: 03/21/17 08:50 03/22/17 08:44 PT 16.9 SECONDS (9.7-12.2) H 03/22/17 08:44 INR 1.5 03/22/17 08:44 APTT 75 SECONDS (21-34) H D 03/22/17 08:44 Assessment and Plan (1) Pneumonia Status: Acute (2) Influenza Status: Acute (3) Atrial fibrillation Status: Acute (4) NSTEMI (non-ST elevated myocardial infarction) Status: Acute (5) Elevated LFTs Status: Acute (6) Hyperbilirubinemia Status: Acute (7) IDDM (insulin dependent diabetes mellitus) Status: Chronic (8) HTN (hypertension) Status: Chronic (9) CVA, old, hemiparesis Status: Chronic (10) Chronic kidney disease, stage V requiring chronic dialysis Status: Acute (11) Prophylactic measure Status: Acute
--- NOTE | 2017-03-22 11:58 | HP ---
HISTORY OF PRESENT ILLNESS: This is a 72-year-old male who presented to the hospital with chief complaint of nausea, vomiting, history of pneumonia and cachexia. The patient came to the ER and was advised admission. PHYSICAL EXAMINATION: GENERAL: The patient is awake, alert, oriented. VITAL SIGNS: Temperature 98, pulse 90. NECK: Supple. CHEST: Symmetrical. HEENT: Within normal limits. HEART: Regular. ABDOMEN: Soft. EXTREMITIES: No edema. ASSESSMENT AND PLAN: The patient suffers from pneumonia, bedrest, supportive care. Sarah Weston MD
[2017-03-22] MEDS ORDERED: Tolvaptan 15 MG TAB PO ONE (12:00)
--- NOTE | 2017-03-22 16:02 | CP.PCM.PN ---
Subjective - Date & Time of Evaluation Date of Evaluation: 03/22/17 Time of Evaluation: 16:01 - Subjective Subjective: Follow up Nephrology Consultation Note Assessment: Stable Hyponatremia likely due to hypotnic fluid as D5W Influenza B infection, NSTEMI Diabetic chronic Kidney Disease (E11.22) Hypertensive Chronic Kidney Disease (I12.0) End stage renal disease (N18.6) dependence on hemodialysis (Z99.2) (MWF) via AVF Anemia (D64.9), Hyperphosphatemia (E83.39), Secondary Hyperparathyroidism (E21.1 ), HTN (I12.0) hx of CHF, CVA, possible cirrhosis, thickened urinary bladder wall Plan: Dialysis today. Continue with Nephrovite 1 tab/day. Not onn GUDELIA as, last Hb 11 Continue with phos binders, last phos level 4.2 BP control with meds as ordered. Patient on RAAS marine as enalapril (will hold as BP low) Glycemic control, Dialysis consistent diet Further work up/management as per primary team Dose meds/antibiotics (if needed) for ESRD status. Avoid fleets enema/magnesium based laxatives. cardiology and ID following change IVF to D5W with NS as he is not eating much. avoid hypotonic fluids. can d/c IVF once oral intake adequate. Thanks for allowing me to participate in care of your patient. Will follow patient with you. Please call if any Qs Dr Agustin Mooney Office: [phone] Subjective: Noted events overnight. Patients not much communicating. no new complaints as per family bedside. Physical Examination: seen on HD, feels hungry and wants to eat General Appearance: Comfortable, in no acute respiratory distress Vitals reviewed and noted as below Head; Atraumatic, normocephalic Neck; supple no lymphadenopathy, no thyromegaly or bruit Lungs: Normal respiratory rate/effort. Breath sounds bilateral equal and clear except few left basal crackle Heart: Normal rate. s1s2 normal. No rub or gallop. Extremities: no edema. No varicose veins Neurological: Patient is sleepy. known to have left hemiparesis Skin: Warm and dry. Normal turgor. No rash. Palpitation: Normal elasticity for age Abdomen: Abdomen is soft. Bowel sounds +. There is no abdominal tenderness, no guarding/rigidity or organomegaly Psych: deferred. he is irritable. MSK: no joint tenderness or swelling. Digits and nails normal, no deformity : kidney or bladder not palpable Access: AVF Labs/imaging reviewed. Past medical history, past surgical history, family history, social history, allergy reviewed and noted as below Family Hx: no hx of CKD. Non contributory Objective - Vital Signs/Intake and Output Vital Signs (last 24 hours): Temp Pulse Resp BP Pulse Ox 97.3 F L 65 20 108/72 97 03/22/17 14:50 03/22/17 14:50 03/22/17 14:50 03/22/17 15:50 03/22/17 14:50 Intake and Output: 03/22/17 03/22/17 06:59 18:59 Intake Total 432 Balance 432 - Medications Medications: Current Medications Aspirin (Aspirin Chewable) 81 mg PO DAILY [facility] Last Admin: 03/22/17 11:06 Dose: 81 mg Carvedilol (Coreg) 12.5 mg PO Q12 [facility] Last Admin: 03/22/17 11:06 Dose: Not Given Hydralazine HCl (Apresoline) 75 mg PO DAILY [facility] Last Admin: 03/22/17 11:06 Dose: Not Given Piperacillin Sod/Tazobactam Sod (Zosyn 2.25 Gm Iv Premix) 2.25 gm in 50 mls @ 100 mls/hr IVPB Q6H [facility] Last Admin: 03/22/17 11:05 Dose: 100 mls/hr Heparin Sodium/Sodium Chloride (Heparin 46706 Units/250ml 1/2 Normal Saline) 25 ,000 units in 250 mls @ 3.991 mls/hr IV .Q24H PRN; Protocol; 6.95 UNITS/KG/HR PRN Reason: ADJUST RATE PER PROTOCOL Last Admin: 03/21/17 11:20 Dose: 6.95 units/kg/hr, 3.991 mls/hr Dextrose/Sodium Chloride (Dextrose 5%/0.9% Ns 1000 Ml) 1,000 mls @ 30 mls/hr IV .Q24H [facility] Stop: 03/23/17 16:16 Last Admin: 03/21/17 17:15 Dose: 30 mls/hr Insulin Human Regular (Novolin R) 0 unit SC ACHS [facility] PRN Reason: Protocol Last Admin: 03/22/17 12:08 Dose: Not Given Ondansetron HCl (Zofran Inj) 4 mg IVP Q6 PRN PRN Reason: Nausea/Vomiting Last Admin: 03/18/17 16:00 Dose: 4 mg Oseltamivir Phosphate (Tamiflu Susp) 30 mg PO DAILY@1800 [facility] Stop: 03/24/17 18:01 Last Admin: 03/21/17 19:00 Dose: 30 mg Pantoprazole Sodium (Protonix Ec Tab) 40 mg PO DAILY [facility] Last Admin: 03/22/17 11:06 Dose: 40 mg Vitamin B Complex/Vit C/Folic Acid (Nephro-Seth) 1 tab PO DAILY [facility] Last Admin: 03/22/17 11:07 Dose: 1 tab - Labs Labs: 03/21/17 08:50 03/22/17 08:44 PT 16.9 SECONDS (9.7-12.2) H 03/22/17 08:44 INR 1.5 03/22/17 08:44 APTT 75 SECONDS (21-34) H D 03/22/17 08:44
[2017-03-22] MEDS: Dextrose 5%/0.9% NS 1,000 ML IV SCH (16:35)
[2017-03-22] MEDS: Oseltamivir 6 MG/ML PO SCH (19:57)
--- NOTE | 2017-03-22 20:52 | PN ---
DATE: LOCATION: [facility] SUBJECTIVE: This is a 72-year-old man in a status of DNR/DNI, seen and examined early in rounds with staff in the floor without reported significant clinical changes or active bleeding, with a complaint of much softer stool, stool for C. diff still pending. Patient is post hemodialysis today. The entire chart is reviewed including, but not limited to, most recent lab and radiology study results, current and the previous medication list, current and the previous medical events, and today's PT 16.9 with PTT 75. Patient is on heparin, with low sodium of 124, increased BUN at 30, creatinine 4.0, blood glucose level 120 with low calcium of 7.9 with increased total bilirubin 2.0 as well as AST to 134 with elevated alkaline phosphatase of 182 with low albumin of 2.6, low total protein of 5.5. No reported actual chest pain or significant shortness of breath. Patient still has some mild abdominal distention, believed to be secondary to ascites. PHYSICAL EXAMINATION GENERAL: A 72-year-old male. VITAL SIGNS: Afebrile with pulse of 68, respiratory 20 to 22, blood pressure of 134/84. HEENT: Show pale, dry oral mucous membrane. Anicteric sclerae. LUNGS: Few scattered crepitation. Decreased air entry at bases. HEART: Positive S1 and S2. ABDOMEN: Soft with mild distention with mild generalized tenderness. No mass or organomegaly. No rebound tenderness or guarding. Small amount of ascites is positive. NEUROLOGIC: Without significant reported new neurological deficits sensory or motor. EXTREMITIES: Without significant clubbing, cyanosis, or edema. VASCULAR: Peripheral pulses are present bilaterally. IMPRESSION: 1. Hepatic cirrhosis, portal hypertension with ascites. The possibility of viral hepatitis versus right-sided heart failure should be kept in mind. 2. Right-sided heart failure. 3. Pneumonia by recent history. 4. Anemia most likely secondary to above. The possibility of anemia secondary to gastrointestinal blood loss, upper versus lower was raised, patient has no evidence of active bleeding in the meantime. 5. Known history of but not limited to hypertension, cerebrovascular accident, coronary artery disease with chronic renal failure, on hemodialysis. SUGGESTIONS: 1. Continue current management. 2. Blood transfusion to keep hemoglobin around 10 g percent as needed. 3. Follow up in cancer markers. 4. No need for any further aggressive GI workup keeping in mind patient's clinical status, age group and he is in DNR. Case discussed with the admitting MD as well as all the consultants. Rocio Pena MD
[2017-03-23 01:37] VITALS: RESP 20
[2017-03-23] MEDS: Piperacill/Tazo 2.25gm in Dex 2.25 GM/50 ML BAG IVPB SCH ×3 (03:14→17:24)
[2017-03-23 07:17] LABS: BASO % 0.7 % (0.0-2.0); EOS # 0.1 K/uL (0.0-0.7); HEMOGLOBIN 10.3 g/dL (12.0-18.0); LYMPH # 0.7 K/uL (1.0-4.3); LYMPH % 12.3 % (20.0-40.0); MEAN CELL VOLUME 93.7 fL (80.0-94.0); MEAN CORPUSCULAR HEMOGLOBIN 31.5 pg (27.0-31.0); MEAN CORPUSCULAR HGB CONC 33.6 g/dL (33.0-37.0); MEAN PLATELET VOLUME 9.4 fL (7.2-11.7); MONO # 0.4 K/uL (0.0-0.8); MONO % 7.9 % (0.0-10.0); NEUT # 4.4 K/uL (1.8-7.0); NEUT % 78.1 % (50.0-75.0); NRBC % 0.1 % (0.0-2.0); RBC 3.27 Mil/uL (4.40-5.90); RED CELL DISTRIBUTION WIDTH 17.5 % (11.5-14.5); WHITE BLOOD COUNT 5.6 K/uL (4.8-10.8)
[2017-03-23 07:32] LABS: INR 1.4; PROTHROMBIN TIME 16.2 SECONDS (9.7-12.2)
[2017-03-23] MEDS: (Novolin R) Insulin Human Regular 100 units/ml vial SC SCH ×3 (07:53→17:24)
[2017-03-23 08:13] LABS: ALB/GLOB RATIO 0.9 (1.0-2.1); ALBUMIN 2.5 g/dL (3.5-5.0); CALCIUM 7.5 mg/dl (8.6-10.4); MAGNESIUM 1.5 mg/dL (1.6-2.3)
--- NOTE | 2017-03-23 09:55 | CP.PCM.PN ---
Subjective - Date & Time of Evaluation Date of Evaluation: 03/23/17 Time of Evaluation: 09:55 - Subjective Subjective: PGY2 medicine progress note for Dr. Weston's service Patient seen and examined. Patient complaining of not feeling well generally but cannot specify. On later re-examination, at bedside and states that patient has not been eating well for the past week. Objective - Vital Signs/Intake and Output Vital Signs (last 24 hours): Temp Pulse Resp BP Pulse Ox 97.9 F 72 20 97/56 L 98 03/23/17 08:45 03/23/17 08:45 03/23/17 08:45 03/23/17 08:45 03/23/17 08:45 Intake and Output: 03/23/17 03/23/17 06:59 18:59 Intake Total 802 Balance 802 - Medications Medications: Current Medications Aspirin (Aspirin Chewable) 81 mg PO DAILY [facility] Last Admin: 03/22/17 11:06 Dose: 81 mg Carvedilol (Coreg) 12.5 mg PO Q12 [facility] Last Admin: 03/22/17 11:06 Dose: Not Given Hydralazine HCl (Apresoline) 75 mg PO DAILY [facility] Last Admin: 03/22/17 11:06 Dose: Not Given Piperacillin Sod/Tazobactam Sod (Zosyn 2.25 Gm Iv Premix) 2.25 gm in 50 mls @ 100 mls/hr IVPB Q6H [facility] Last Admin: 03/23/17 03:14 Dose: 100 mls/hr Heparin Sodium/Sodium Chloride (Heparin 71580 Units/250ml 1/2 Normal Saline) 25 ,000 units in 250 mls @ 3.991 mls/hr IV .Q24H PRN; Protocol; 6.95 UNITS/KG/HR PRN Reason: ADJUST RATE PER PROTOCOL Last Admin: 03/21/17 11:20 Dose: 6.95 units/kg/hr, 3.991 mls/hr Dextrose/Sodium Chloride (Dextrose 5%/0.9% Ns 1000 Ml) 1,000 mls @ 30 mls/hr IV .Q24H [facility] Stop: 03/23/17 16:16 Last Admin: 03/22/17 16:35 Dose: Not Given Insulin Human Regular (Novolin R) 0 unit SC ACHS [facility] PRN Reason: Protocol Last Admin: 03/23/17 07:53 Dose: Not Given Ondansetron HCl (Zofran Inj) 4 mg IVP Q6 PRN PRN Reason: Nausea/Vomiting Last Admin: 03/18/17 16:00 Dose: 4 mg Oseltamivir Phosphate (Tamiflu Susp) 30 mg PO DAILY@1800 [facility] Stop: 03/24/17 18:01 Last Admin: 03/22/17 19:57 Dose: 30 mg Pantoprazole Sodium (Protonix Ec Tab) 40 mg PO DAILY [facility] Last Admin: 03/22/17 11:06 Dose: 40 mg Vitamin B Complex/Vit C/Folic Acid (Nephro-Seth) 1 tab PO DAILY [facility] Last Admin: 03/22/17 11:07 Dose: 1 tab - Labs Labs: 03/23/17 07:10 03/23/17 07:10 PT 16.2 SECONDS (9.7-12.2) H 03/23/17 07:10 INR 1.4 03/23/17 07:10 APTT 73 SECONDS (21-34) H 03/23/17 07:10 - Constitutional Appears: Cachectic, Chronically Ill - Head Exam Head Exam: ATRAUMATIC - Eye Exam Eye Exam: EOMI - ENT Exam ENT Exam: Mucous Membranes Moist - Respiratory Exam Respiratory Exam: Clear to Ausculation Bilateral - Cardiovascular Exam Cardiovascular Exam: RRR, +S1, +S2 - GI/Abdominal Exam GI & Abdominal Exam: Soft, Normal Bowel Sounds - Extremities Exam Extremities Exam: Normal Inspection - Neurological Exam Neurological Exam: Alert, Awake - Skin Skin Exam: Warm Assessment and Plan - Assessment and Plan (Free Text) Assessment: (1) Pneumonia Assessment & Plan: zosyn started 03/18/17, continue IV zosyn 2.25g q6h for 5 more days repeat CXR ordered Sputum culture negative blood culture negative ID, Dr. Kemp consulted- help appreciated Status: Acute (2) Influenza Assessment & Plan: continue Tamiflu until 03/24/17 droplet isolation. Status: Acute (3) Atrial fibrillation Assessment & Plan: Rate well controlled his rate has been controlled with a HR around the 60s-70s Status: Acute (4) NSTEMI (non-ST elevated myocardial infarction) Assessment & Plan: patient had elevated troponins on admission which were uptrending patient was on heparin drip, discontinued today 03/23/17 after discussion with toilet attendant Dr. Thomas patient has liver disease with thrombocytopenia, platelets today 34 and should not be continued on heparin drip patient to continue aspirin 81mg daily with renal-dosed lovenox 30mg sc daily for DVT prophylaxis, however as platelets are low, patient will need to be monitored for bleeding Status: Acute (5) Elevated LFTs Assessment & Plan: Abdominal ultrasound comments on possible cirrhosis with ascites, cholelithiasis , bilateral pleural effusions, gallbladder wall thickening up to 5mm, which can be seen with ascites. renal atrophy also noted GI, Dr. Mulligan, consulted- help appreciated does not recommend aggressive workup at this time, however we should continue PPI and check guaiac stool to rule out cause of patient's anemia Status: Acute (6) Hyperbilirubinemia Assessment & Plan: T. Bili is 1.9, D. bili 1.7 Status: Acute (7) Anemia Assessment & Plan: likely due to chronic kidney disease patient to start epoetin in dialysis tomorrow will check stool occult blood to rule out GI cause (8)IDDM (insulin dependent diabetes mellitus) Assessment & Plan: Patient has been having hypoglyemic episodes per patient's family, will do accu checks with sliding scale. Status: Chronic (9) HTN (hypertension) Assessment & Plan: Hold medication due to low BP continue current medication. Status: Chronic (10) CVA, old, hemiparesis Assessment & Plan: continue reposition of patient, will need to check for pressure ulcers. PT and OT. Status: Chronic (11) Chronic kidney disease, stage V requiring chronic dialysis Assessment & Plan: continue Dialysis MWF Status: Acute (12) Prophylactic measure Assessment & Plan: protonix, SCDs, lovenox 30mg sc daily pallative care consult, patient has agreed to DNR/DNI. Status: Acute All medical management as per Dr. eWston Patient is stable for discharge to rehab when bed is available per Dr. Weston. Patient is to continue zosyn for 5 more days for treatment of pneumonia and is to continue Tamiflu until 03/24/17 for treatment of influenza. Patient is to continue dialysis MWF as per channel director Dr. Arroyo. Hypertensive medications have been held due to hypotension. Heparin drip was discontinued due to patient 's thrombocytopenia and liver disease. Patient is to continue aspirin 81mg and lovenox 30mg sc daily for DVT prophylaxis, and patient should be monitored for bleeding. Patient is to return to the ED if symptoms reoccur or worsen.
[2017-03-23] MEDS: Pantoprazole 40 mg EC Tab PO SCH (10:13)
[2017-03-23] MEDS: Multivitamin Vitamin B Complex (Nephro-Vite) Tab PO SCH (10:13)
[2017-03-23] MEDS ORDERED: Potassium Chloride 20 mEq ER Tab PO ONE (12:00)
[2017-03-23] MEDS: Magnesium Sulfate 1 gm in D5W 1 GM/100 ML BAG IVPB SCH ×2 (12:34→13:27)
--- NOTE | 2017-03-23 15:00 | PN ---
DATE: LOCATION: [facility]. SUBJECTIVE: This is a 72-year-old male seen in rounds, appeared to be more awake and alert, without reported active bleeding with period of mild diarrhea, for which stool was sent for possible C. diff toxin. Patient is still on hemodialysis. The entire chart is reviewed including, but not limited to most recent lab and radiology study results, current and the previous medication list, current and the previous medical events. The case discussed at length with the consultants. Today's lab showed hemoglobin is still low at 10.3, with hematocrit 30.7, with thrombocytopenia of 34, for which heparin supposed not to be given during hemodialysis. PT is 16.2 with PTT 73. Sodium is still low at 126, with low potassium of 3.3, with creatinine elevated at 2.6. Blood glucose level 134, with low calcium of 7.5, low phosphorous of 1.5, with AST 103, low albumin 2.5, low total protein 5.3. C. diff in the initial report was negative. PHYSICAL EXAMINATION GENERAL: A 72-year-old male, in a state of DNR and DNI. VITAL SIGNS: Afebrile with pulse of 70, respiratory rate 20 to 22, blood pressure 102/68. HEENT: Showed pale, dry mucous membrane. Nonicteric sclerae. LUNGS: Few scattered crepitation. Decreased air entry at bases. HEART: Positive S1 and S2. ABDOMEN: Soft with small amount of ascites. No mass or organomegaly. No rebound tenderness or guarding. EXTREMITIES: With slight lower extremity edematous changes. No clubbing or cyanosis. NEUROLOGIC: No reported new neurological deficits, sensory or motor. No focal deficits reported. VASCULAR: Peripheral pulses are present bilaterally, but weak. IMPRESSION: 1. Hepatic cirrhosis. 2. Portal hypertension with ascites. 3. Right side heart failure. 4. Pneumonia by recent history. 5. Known history of hypertension, cerebrovascular accident, coronary artery disease, chronic renal failure, on hemodialysis. 6. Anemia secondary to above. 7. Thrombocytopenia of unclear etiology. SUGGESTION: 1. Continue current management. 2. Guaiac of the stool daily x3. 3. Considering the patient's clinical status, no aggressive GI workup to be performed in the meantime until the patient is more stable clinically. Otherwise, close observation to follow. 4. Proton pump inhibitors. Rocio Pena MD [facility] # [id number]
--- NOTE | 2017-03-23 15:42 | CP.PCM.PN ---
Subjective - Date & Time of Evaluation Date of Evaluation: 03/23/17 Time of Evaluation: 15:41 - Subjective Subjective: Follow up Nephrology Consultation Note Assessment: Stable Hyponatremia Influenza B infection, NSTEMI Diabetic chronic Kidney Disease (E11.22) Hypertensive Chronic Kidney Disease (I12.0) End stage renal disease (N18.6) dependence on hemodialysis (Z99.2) (MWF) via AVF Anemia (D64.9), Hyperphosphatemia (E83.39), Secondary Hyperparathyroidism (E21.1 ), HTN (I12.0) hx of CHF, CVA, possible cirrhosis, thickened urinary bladder wall Plan: Dialysis tomorrow as ordered. Continue with Nephrovite 1 tab/day. add epogenw ith HD, last Hb 10.3 Continue with phos binders, last phos level 4.2 BP control with meds as ordered. Patient on RAAS marine as enalapril (will hold as BP low) Glycemic control, Dialysis consistent diet Further work up/management as per primary team Dose meds/antibiotics (if needed) for ESRD status. Avoid fleets enema/magnesium based laxatives. cardiology and ID following change IVF to D5W with NS as he is not eating much. avoid hypotonic fluids. can d/c IVF once oral intake adequate. Thanks for allowing me to participate in care of your patient. Will follow patient with you. Please call if any Qs Dr Agustin Mooney Office: [phone] Subjective: Noted events overnight. Patients not much communicating. no new complaints as per family bedside. Physical Examination: General Appearance: Comfortable, in no acute respiratory distress Vitals reviewed and noted as below Head; Atraumatic, normocephalic Neck; supple no lymphadenopathy, no thyromegaly or bruit Lungs: Normal respiratory rate/effort. Breath sounds bilateral equal and clear except few left basal crackle Heart: Normal rate. s1s2 normal. No rub or gallop. Extremities: no edema. No varicose veins Neurological: Patient is awake. known to have left hemiparesis Skin: Warm and dry. Normal turgor. No rash. Palpitation: Normal elasticity for age Abdomen: Abdomen is soft. Bowel sounds +. There is no abdominal tenderness, no guarding/rigidity or organomegaly Psych: deferred. he is irritable. MSK: no joint tenderness or swelling. Digits and nails normal, no deformity : kidney or bladder not palpable Access: AVF Labs/imaging reviewed. Past medical history, past surgical history, family history, social history, allergy reviewed and noted as below Family Hx: no hx of CKD. Non contributory Objective - Vital Signs/Intake and Output Vital Signs (last 24 hours): Temp Pulse Resp BP Pulse Ox 97.9 F 72 20 97/56 L 98 03/23/17 08:45 03/23/17 08:45 03/23/17 08:45 03/23/17 08:45 03/23/17 08:45 Intake and Output: 03/23/17 03/23/17 06:59 18:59 Intake Total 802 Balance 802 - Medications Medications: Current Medications Aspirin (Aspirin Chewable) 81 mg PO DAILY [facility] Last Admin: 03/23/17 10:13 Dose: 81 mg Carvedilol (Coreg) 12.5 mg PO Q12 [facility] Last Admin: 03/22/17 11:06 Dose: Not Given Enoxaparin Sodium (Lovenox) 30 mg SC DAILY [facility] Hydralazine HCl (Apresoline) 75 mg PO DAILY [facility] Last Admin: 03/22/17 11:06 Dose: Not Given Piperacillin Sod/Tazobactam Sod (Zosyn 2.25 Gm Iv Premix) 2.25 gm in 50 mls @ 100 mls/hr IVPB Q6H [facility] Last Admin: 03/23/17 10:13 Dose: 100 mls/hr Dextrose/Sodium Chloride (Dextrose 5%/0.9% Ns 1000 Ml) 1,000 mls @ 30 mls/hr IV .Q24H [facility] Stop: 03/23/17 16:16 Last Admin: 03/22/17 16:35 Dose: Not Given Insulin Human Regular (Novolin R) 0 unit SC ACHS [facility] PRN Reason: Protocol Last Admin: 03/23/17 12:39 Dose: Not Given Ondansetron HCl (Zofran Inj) 4 mg IVP Q6 PRN PRN Reason: Nausea/Vomiting Last Admin: 03/18/17 16:00 Dose: 4 mg Oseltamivir Phosphate (Tamiflu Susp) 30 mg PO DAILY@1800 [facility] Stop: 03/24/17 18:01 Last Admin: 03/22/17 19:57 Dose: 30 mg Pantoprazole Sodium (Protonix Ec Tab) 40 mg PO DAILY [facility] Last Admin: 03/23/17 10:13 Dose: 40 mg Vitamin B Complex/Vit C/Folic Acid (Nephro-Seth) 1 tab PO DAILY [facility] Last Admin: 03/23/17 10:13 Dose: 1 tab - Labs Labs: 03/23/17 07:10 03/23/17 07:10 PT 16.2 SECONDS (9.7-12.2) H 03/23/17 07:10 INR 1.4 03/23/17 07:10 APTT 73 SECONDS (21-34) H 03/23/17 07:10
--- NOTE | 2017-03-23 16:53 | RAD ---
HISTORY: pleural effusions COMPARISON: 03/18/2017 1315 hours FINDINGS: LUNGS: The prior left inferior hemithoracic coalescent airspace opacities are more pronounced in this leftwardly rotated exam. Interval increased right infrahilar coalescing base opacities. Left findings are more pronounced. The prior inferior PLEURA: Left pleural effusion -slightly increased. , no pneumothorax apparent. CARDIOVASCULAR: Cardiomegaly as before central pulmonary venous congestion suspect. Coalescent pulmonary edema simple over areas described above as coalescing airspace opacities OSSEOUS STRUCTURES: Generalized osteopenia VISUALIZED UPPER ABDOMEN: Normal. OTHER FINDINGS: None. IMPRESSION: Interval progressive coalescing infiltrates atelectasis and/or pulmonary edema - left lung base most notable Interval increase left pleural effusion. Cardiomegaly with interval increased pulmonary venous congestion
[2017-03-23 17:02] VITALS: BP 131/95; PULSE 67; TEMP 98; O2SAT 95
[2017-03-23] MEDS: Oseltamivir 6 MG/ML PO SCH (17:23)
[2017-03-23] MEDS: Dextrose 5%/0.9% NS 1,000 ML IV SCH (17:25)
[2017-03-24] MEDS ORDERED: Epoetin Alfa Dialysis 40000 UNIT/ml Inj IV SCH (09:00)
[2017-03-24] MEDS ORDERED: Enoxaparin 30 mg Syringe SC SCH (10:00)
== END 2017-03-23 22:05 | DRG 193 ==
LOC: C.ER 11:57 → C.9E 14:55 → C.6T 14:55 → C.3T 14:55
PROVIDERS: ADMIT Internal Medicine Pulmonary Disease; ATTEND Internal Medicine Pulmonary Disease
PROC: 5A1D70Z Performance of Urinary Filtration, Intermittent, Less than 6 Hours Per Day (ICD-10-PCS; principal; 2017-03-19)
DX: J10.00 Influenza due to other identified influenza virus with unspecified type of pneumonia (principal); I21.4 Non-ST elevation (NSTEMI) myocardial infarction; I13.2 Hypertensive heart and chronic kidney disease with heart failure and with stage 5 chronic kidney disease, or end stage renal disease; E11.22 Type 2 diabetes mellitus with diabetic chronic kidney disease; E11.649 Type 2 diabetes mellitus with hypoglycemia without coma; D69.6 Thrombocytopenia, unspecified; N18.6 End stage renal disease; K76.6 Portal hypertension; R18.8 Other ascites; I69.354 Hemiplegia and hemiparesis following cerebral infarction affecting left non-dominant side; I50.20 Unspecified systolic (congestive) heart failure; J98.11 Atelectasis; N25.81 Secondary hyperparathyroidism of renal origin; B19.9 Unspecified viral hepatitis without hepatic coma; E87.1 Hypo-osmolality and hyponatremia; E83.39 Other disorders of phosphorus metabolism; I48.91 Unspecified atrial fibrillation; R55 Syncope and collapse; Z99.2 Dependence on renal dialysis; Z79.4 Long term (current) use of insulin; Z74.01 Bed confinement status; I25.5 Ischemic cardiomyopathy; Z87.891 Personal history of nicotine dependence; Z95.5 Presence of coronary angioplasty implant and graft; E80.6 Other disorders of bilirubin metabolism; Z51.5 Encounter for palliative care; I25.10 Atherosclerotic heart disease of native coronary artery without angina pectoris; F03.90 Unspecified dementia, unspecified severity, without behavioral disturbance, psychotic disturbance, mood disturbance, and anxiety; Z66 Do not resuscitate; K74.60 Unspecified cirrhosis of liver; D63.1 Anemia in chronic kidney disease